=== PATIENT | male | born 1950 | race African-American/Black ===

== ENCOUNTER 2016-11-21 12:09 | Inpatient (IN) ==
[2016-11-21] MEDS ORDERED: FUROSEMIDE 40 MG/4 ML VIAL IV STA (12:28)
--- NOTE | 2016-11-21 12:35 | Emergency Department Note ---
Arrival - Arrival Chief Complaint: Non-Specific Stated Complaint: swollen stomach, chf hx ED Nursing Triage Note: pt has swelling in abd and legs onset about 3 weeks ago. pt has hx of chf. pt has gained about 40 lbs in 3 weeks Mode of Arrival: Ambulatory Time Seen by Provider: 11/21/16 12:23 - History of Present Illness Allergies/Adverse Reactions: Allergies Allergy/AdvReac Type Severity Reaction Status Date / Time MARIO Inhibitors Allergy Unknown/Unable Verified 04/13/16 11:57 to obtain Sulfa (Sulfonamide Allergy RASH Verified 04/13/16 11:57 Antibiotics) Home Medications: Home Medications Medication Instructions Recorded Confirmed Type Carvedilol [Coreg] 6.25 mg PO BID 04/21/15 05/01/16 History Isosorbide Mononitrate [Isosorbide 60 mg PO BID 04/21/15 05/01/16 History Mononitrate ER] Potassium Chloride [Klor-Con M20] 20 meq PO TID 04/21/15 05/01/16 History hydrALAZINE TAB [Apresoline Tab] 100 mg PO TID 04/21/15 05/01/16 History Abiraterone Acetate [Zytiga] 1,000 mg PO BID 04/13/16 05/01/16 History Allopurinol [Zyloprim] 100 mg PO BID #60 tablet 04/17/16 05/01/16 Rx Gabapentin Cap/Tab [Neurontin 100 mg PO TID #90 capsule 04/17/16 05/01/16 Rx Cap/Tab] Furosemide Tab [Lasix Tab] 80 mg PO BID DIURETIC 05/01/16 05/01/16 History HYDROcodone/ACETAMIN 5-325 [[place] 1 tablet PO Q6H PRN #30 tablet 05/04/16 Rx 5-325] Pantoprazole Tab [Protonix Tab] 40 mg PO BID@0700,1900 #60 tablet 05/04/16 Rx Medical,Surgical,& Family Hx - Medical History Cardio: History of: Cardiac Dysrhythmia (afib), CHF, Hypertension, Cardiovascular Problems (cardiomyopathy) Neurology: No history of: Seizures HEENT: No history of: Glaucoma Endocrine: History of: Diabetes Mellitus (IDDM), Dyslipidemia Genitourinary: History of: Prostate Problems (prostate cancer) Hematology: History of: Anemia No history of: Blood Transfusion Reaction Other: History of: Cancer (prostate cancer) - Surgical History HEENT Surgeries: Surgical HX of: Tonsilectomy & Adenoidectomy Abdominal Surgeries: Surgical HX of: Appendectomy, Cholecystectomy Orthopedic Surgeries: Patient denies;: Total Knee Replacement - Family History Family History: Reports;: Family Diabetes (Mother), Family Heart Disease (Sister ), Family Hypertension Denies;: Family Cancer - Social History Smoking Status: Never smoker Frequency of Alcohol Use: None Type of Drug Use: None Exam Vital Signs: Vital Signs Temperature 97.6 F 11/21/16 12:14 Pulse Rate 98 H 11/21/16 12:14 Respiratory Rate 18 11/21/16 12:14 Blood Pressure 135/96 11/21/16 12:14 O2 Sat by Pulse Oximetry 94 L 11/21/16 12:14
--- NOTE | 2016-11-21 12:37 | Emergency Department Note ---
Kapil Love Brooke, am scribing for, and in the presence of, Rikki Bernard MD 12:30 . Joana Love James D, MD, personally performed the services described in this documentation, ascribed by Annmarie Dick in my presence, and it is both accurate and complete . Arrival - Arrival Chief Complaint: Non-Specific Stated Complaint: swollen stomach, chf hx ED Nursing Triage Note: pt has swelling in abd and legs onset about 3 weeks ago. pt has hx of chf. pt has gained about 40 lbs in 3 weeks Mode of Arrival: Ambulatory Limitations: No Limitations Source: Patient, RN Notes Reviewed Time Seen by Provider: 11/21/16 12:23 - History of Present Illness HPI Narrative: Patient is a 66 year old male who presents to the ED with c/o abdominal swelling that started about three weeks ago. Patient has history of CHF and kidney failure. He says he does take fluid pills and have been taking those and his other medications, regularly. He has been voiding frequently. Patient says he also gets short of breath, sometimes, but denies having any vomiting. He says that he has been eating a lot of high sodium foods. There are no other complaints. Patient also has PMHx of afib, HTN, dyslipidemia, IDDM, cardiomyopathy, prostate cancer, and anemia. His Primary Care Provider is Dr. Black. He does not have home oxygen. Onset (ago): week(s) (3) Allergies/Adverse Reactions: Allergies Allergy/AdvReac Type Severity Reaction Status Date / Time MARIO Inhibitors Allergy Unknown/Unable Verified 04/13/16 11:57 to obtain Sulfa (Sulfonamide Allergy RASH Verified 04/13/16 11:57 Antibiotics) Home Medications: Home Medications Medication Instructions Recorded Confirmed Type Carvedilol [Coreg] 6.25 mg PO BID 04/21/15 11/21/16 History Isosorbide Mononitrate [Isosorbide 60 mg PO BID 04/21/15 11/21/16 History Mononitrate ER] Potassium Chloride [Klor-Con M20] 20 meq PO TID 04/21/15 11/21/16 History hydrALAZINE TAB [Apresoline Tab] 100 mg PO TID 04/21/15 11/21/16 History Allopurinol [Zyloprim] 100 mg PO BID #60 tablet 04/17/16 11/21/16 Rx Gabapentin Cap/Tab [Neurontin 100 mg PO TID #90 capsule 04/17/16 11/21/16 Rx Cap/Tab] Furosemide Tab [Lasix Tab] 80 mg PO BID DIURETIC 05/01/16 11/21/16 History Enzalutamide [Xtandi] 160 mg PO DAILY 11/21/16 11/21/16 History Tamsulosin [Flomax] 0.4 mg PO BEDTIME 11/21/16 11/21/16 History Review of System - Review of System 12 point system: reviewed and no additional remarkable complaints except as stated - Review of System Constitutional: Absent: fever Respiratory: Present: other (intermittent shortness of breath). Absent: respiratory distress Gastrointestinal: Present: other (abdominal swelling) Skin: Absent: rash Medical,Surgical,& Family Hx - Medical History Cardio: History of: Cardiac Dysrhythmia (afib), CHF, Hypertension, Cardiovascular Problems (cardiomyopathy) Neurology: No history of: Seizures HEENT: No history of: Glaucoma Endocrine: History of: Diabetes Mellitus (IDDM), Dyslipidemia Genitourinary: History of: Prostate Problems (prostate cancer) Hematology: History of: Anemia No history of: Blood Transfusion Reaction Other: History of: Cancer (prostate cancer) - Surgical History HEENT Surgeries: Surgical HX of: Tonsilectomy & Adenoidectomy Abdominal Surgeries: Surgical HX of: Appendectomy, Cholecystectomy Orthopedic Surgeries: Patient denies;: Total Knee Replacement - Family History Family History: Reports;: Family Diabetes (Mother), Family Heart Disease (Sister ), Family Hypertension Denies;: Family Cancer - Social History Smoking Status: Never smoker Frequency of Alcohol Use: None Type of Drug Use: None Exam Vital Signs: Vital Signs Temperature 97.6 F 11/21/16 14:26 Pulse Rate 98 H 11/21/16 14:26 Respiratory Rate 24 11/21/16 14:26 Blood Pressure 135/96 11/21/16 14:26 O2 Sat by Pulse Oximetry 98 11/21/16 12:30 GENERAL: This is a chronically ill-appearing black male in no apparent distress. VITAL SIGNS: Reviewed HEENT: Head is atraumatic and normocephalic. Pupils are equal round react to light. Extraocular movements are intact. Oropharynx is benign with moist mucous membranes. NECK: Neck is soft and supple without tenderness. There are no masses. There is no lymphadenopathy. LUNGS: Decreased breath sounds at the bases bilaterally. Chest rises symmetrically. There is no chest wall tenderness. CV: Heart is irregularly irregular without murmurs rubs or gallops. JVD is present to the angle of the mandible. ABDOMEN: Abdomen is soft, nontender to palpation. There are no abdominal abnormal masses palpated. There is no organomegaly. Bowel sounds are present and active. Patient has anterior abdominal wall edema. SKIN: Skin is warm and dry. No rash. EXTREMITIES: Patient has full range of motion without tenderness. There is 3+ pitting edema of the lower extremities bilaterally. NEUROLOGIC: Awake alert and oriented 4. Cranial nerves II through XII are intact. Motor is 5 over 5 in all extremities bilaterally. Course - Consultations Consultation #1: Discussed with hospitalist. Patient be admitted to their service Time: 14:34 Results - Labs CBC & BMP: 11/21/16 12:37 11/21/16 12:37 Lab Results: I have reviewed the patients labs Labs: Laboratory Tests 11/21/16 12:37 B-Natriuretic Peptide 170 H - EKG EKG results: interpreted by ERMD - Impressions EKG: Atrial fib with a rate of 82, left axis deviation, low voltage QRS. - Diagnostic Findings Procedure: Chest x-ray: image reviewed by me (Cardiomegaly with right pleural effusion and right-sided atelectasis. Patient has increased pulmonary markings bilaterally.) Disposition Clinical Impression: Congestive heart failure, Dietary noncompliance, Atrial fibrillation, Cardiomyopathy, Prostate cancer metastatic to bone Case discussed with: patient Disposition: Still a Patient Condition: Stable Time of Disposition: 14:33
--- NOTE | 2016-11-21 12:58 | XRay Report ---
Exam: XR chest 2V Date: 11/21/2016 12:37 PM Indication: Dyspnea Comparison: 04/13/2016 Technical: PA lateral Findings: Cardiomegaly is present with bilateral effusions and platelike atelectatic change present. Minimal thickening of the minor fissure. Enlargement of the pulmonary arteries are present bilaterally. No pneumothorax. Mediastinum is otherwise intact. Bony structures reveal mild degenerative changes. Impression: 1. Cardiomegaly and component of mild cardiac decompensation with low volume effusions and atelectatic change present bilaterally. 2. Component of pulmonary arterial hypertension with dilatation of the pulmonary artery suspected PROCEDURE INTERPRETED AT [facility] DEPARTMENT OF RADIOLOGY Final Report Signed by: Dr. Chapito Rawls
[2016-11-21] MEDS ORDERED: FUROSEMIDE 40 MG/4 ML VIAL ONE (13:32)
[2016-11-21 13:34] LABS: Basophils % 0.3 % (0.0-0.8); Eosinophils # 0.1 10*3/uL (0.0-0.87); Eosinophils % 2.9 % (0.00-10.9); Hematocrit 32.2 VOL% (42.0-52.0); Hemoglobin 10.4 GM/DL (14.0-18.0); Immature Granulocytes % 0.3 %; Immature Granulocytes Absolute 0.01 #; Lymphocytes # 0.8 10*3/uL (1.4-4.0); Lymphocytes % 19.9 % (21.2-54.2); Mean Corpuscular HGB Conc 32.3 GM/DL (32-36); Mean Corpuscular Hemoglobin 35 PG (27-34); Mean Corpuscular Volume 108.4 FL (87-102); Mean Platelet Volume 9.4 FL (9.6-12.0); Monocytes # 0.4 10*3/uL (0.11-0.8); Monocytes % 11.5 % (1.7-12.7); Neutrophils # 2.5 10*3/uL (1.4-7.4); Neutrophils % 65.1 % (38.7-73.9); Platelet Count 182 T/CUMM (130-400); Red Blood Count 2.97 MC/CUMM (3.8-5.5); Red Cell Distribution Width 14.6 % (9.3-17.3); White Blood Count 3.8 T/CUMM (4-12)
[2016-11-21 13:50] LABS: Apearance,Urine CLEAR (Clear); Bilirubin,Urine Negative (Negative); Blood, Urine Negative (Negative); Glucose,Urine (UA) Negative (Negative); Hyaline Casts,Urine 1 /LPF (0-3); Ketones,Urine Negative (Negative); Nitrite,Urine Negative (Negative); Protein,Urine >=500 MG/DL; RBC,Urine 1 /HPF (0-4); Urine Color Yellow (Yellow); Urine Specific Gravity 1.011 (1.001-1.035); WBC,Urine 1 /HPF (0-6)
[2016-11-21 13:58] LABS: Calcium 8.8 MG/DL (8.5-10.1)
--- NOTE | 2016-11-21 14:02 | Order Completion Report ---
See report scanned to EMR
--- NOTE | 2016-11-21 15:28 | Hospitalist History & Physical ---
Assessment and Plan (1) Congestive heart failure Status: Acute Assessment and plan: Admit to telemetry. Echo in early 2017 shows EF of 55%. Diurese patient with IV lasix. Strict I&Os. Cardiac diet. Education on proper diet. BNP in am. Current Visit: Yes (2) Diabetes Status: Chronic Assessment and plan: Accuchecks achs. SSI. Hbg A1c in the am. Current Visit: No (3) HTN (hypertension) Status: Chronic Assessment and plan: Restart home meds. Current Visit: No (4) History of prostate cancer Status: Chronic Assessment and plan: Pt. followed by [facility]. Has appt tomorrow get nursing staff to notify office. Current Visit: No (5) Chronic kidney disease, stage II (mild) Status: Chronic Assessment and plan: Pt. bun creatinine 29/1.60. This is near patient's baseline. Daily bmp. avoid nephrotoxic agents. Current Visit: No History of Present Illness Chief complaint: abdominal swelling History of present illness: Mr. Preston is a 66 year old male patient with a history of hypertension, chf, dm, anemia, prostate cancer, and renal insufficiency that presents to the ED today with complaints of abdominal and leg swelling x 3 weeks. Pt. is accompanied by his significant other. Pt. states that he has gained 40 lbs in 3 weeks. He also reports that he has been experiencing worsening shortness of breath on exertion. Pt denies any other symptoms such as chest pain or tightness or trouble breathing at rest. Pt. reports complaince with all of his meds (including lasix) daily. Pt. does report noncomplaince with diet and states he eats very high sodium foods. He attributes this to a lack of knowledge on what to eat. Pt. states he is followed by Dr. Black ( PCP), Dr. Merrill (cardiology), Dr. Johnston (nephrology), and Dr. Marina (oncology ). Remarkable labs obtained in ED reveal a BNP of 179, bun/creatinine of 29/1.6 , h&h of 10.4 and 32.2. CXR report revealed 'cardiomegaly and a component of mild cardiac decompensation with low volume effusions and atelectatic change present bilaterally'. Pt's case has been discussed with ER physician and hospitalist Dr. Yeung. Pt. has been accepted onto our service and will be admitted for further evaluation and treatment. Home meds have been reviewed and reconciled at this time. Home Medications Medication Instructions Recorded Confirmed Type Carvedilol [Coreg] 6.25 mg PO BID 04/21/15 11/21/16 History Isosorbide Mononitrate [Isosorbide 60 mg PO BID 04/21/15 11/21/16 History Mononitrate ER] Potassium Chloride [Klor-Con M20] 20 meq PO TID 04/21/15 11/21/16 History hydrALAZINE TAB [Apresoline Tab] 100 mg PO TID 04/21/15 11/21/16 History Allopurinol [Zyloprim] 100 mg PO BID #60 tablet 04/17/16 11/21/16 Rx Gabapentin Cap/Tab [Neurontin 100 mg PO TID #90 capsule 04/17/16 11/21/16 Rx Cap/Tab] Furosemide Tab [Lasix Tab] 80 mg PO BID DIURETIC 05/01/16 11/21/16 History Enzalutamide [Xtandi] 160 mg PO DAILY 11/21/16 11/21/16 History Tamsulosin [Flomax] 0.4 mg PO BEDTIME 11/21/16 11/21/16 History Allergies Allergy/AdvReac Type Severity Reaction Status Date / Time MARIO Inhibitors Allergy Unknown/Unable Verified 04/13/16 11:57 to obtain Sulfa (Sulfonamide Allergy RASH Verified 04/13/16 11:57 Antibiotics) Medical,Surgical,& Family Hx - Medical History Cardio: History of: Cardiac Dysrhythmia (afib), CHF, Hypertension, Cardiovascular Problems (cardiomyopathy) Neurology: No history of: Seizures HEENT: No history of: Glaucoma Endocrine: History of: Diabetes Mellitus (IDDM), Dyslipidemia Genitourinary: History of: Prostate Problems (prostate cancer) Hematology: History of: Anemia No history of: Blood Transfusion Reaction Other: History of: Cancer (prostate cancer) - Surgical History HEENT Surgeries: Surgical HX of: Tonsilectomy & Adenoidectomy Abdominal Surgeries: Surgical HX of: Appendectomy, Cholecystectomy Orthopedic Surgeries: Patient denies;: Total Knee Replacement - Family History Family History: Reports;: Family Diabetes (Mother), Family Heart Disease (Sister ), Family Hypertension Denies;: Family Cancer - Social History Smoking Status: Never smoker Frequency of Alcohol Use: None Type of Drug Use: None Marital Status: Single Lives With:: Significant Other Functional capacity: independent ambulation 12 point system: reviewed and no additional remarkable complaints except as stated - Constitutional Constitutional: Present: weight gain (40 lbs in 3 weeks). Absent: chills, fever (s) - Cardiovascular Cardiovascular: Present: dyspnea on exertion, edema. Absent: chest pain at rest - Respiratory Respiratory: Present: dyspnea on exertion. Absent: cough Exam - Constitutional Vitals: Period Temp Pulse Resp BP Sys/Steven Pulse Ox Last 24 Hr 97.6 F-97.6 F 81-98 18-24 134-165/81-98 94-100 General appearance: no acute distress, over weight - Head Head exam: Present: normal inspection, normocephalic - Eye Eye exam: Present: EOMI Pupils: Present: ELMER - Respiratory Respiratory exam: Present: clear to auscultation bilaterally. Absent: wheezes - Cardiovascular Cardiovascular exam: Present: regular rate and rhythm - GI/Abdominal GI/Abdominal exam: Present: normal bowel sounds, soft. Absent: tenderness - Extremities Exam Extremities exam: Present: full ROM, edema (BLE) - Neurological Exam Neurological exam: Present: alert, oriented X3 - Psychiatric Psychiatric exam: Present: normal affect, normal mood - Skin Skin exam: Present: normal color, warm, dry Results - Labs CBC & BMP: 11/21/16 12:37 11/21/16 12:37 Lab Results: I have reviewed the past 24 hour labs
[2016-11-21] MEDS ORDERED: DEXTROSE 50% 25 GM/50 ML SYRINGE IV PRN (16:38)
[2016-11-21] MEDS ORDERED: GLUCAGON 1 MG VIAL IM PRN (16:38)
[2016-11-21] MEDS ORDERED: POTASSIUM CHLORIDE 20 MEQ TABLET PO PRN (16:38)
[2016-11-21] MEDS ORDERED: ONDANSETRON 4 MG/2 ML VIAL IV PRN (16:38)
[2016-11-21] MEDS ORDERED: MAGNESIUM SULF RIDER 4 GM in PREMIX 1 EACH IV PRN (16:38)
[2016-11-21] MEDS ORDERED: MAGNESIUM SULF RIDER 2 GM in PREMIX 1 EACH IV PRN (16:38)
[2016-11-21] MEDS ORDERED: ACETAMINOPHEN 325 MG TABLET PO PRN (16:38)
[2016-11-21] MEDS: INSULIN LISPRO 100 UNIT/ML SUBCUT SCH ×2 (16:58→21:18)
[2016-11-21] MEDS: FUROSEMIDE 40 MG/4 ML VIAL IV SCH (16:58)
[2016-11-21] MEDS: CARVEDILOL 6.25 MG TABLET PO SCH (21:17)
[2016-11-21] MEDS: TAMSULOSIN 0.4 MG CAPSULE PO SCH (21:18)
[2016-11-21] MEDS: ISOSORBIDE MONONITRATE 60 MG TABLET PO SCH (21:23)
[2016-11-21] MEDS: GABAPENTIN 100 MG CAPSULE PO SCH (21:23)
[2016-11-21] MEDS: ALLOPURINOL 100 MG TABLET PO SCH (21:24)
[2016-11-22 06:24] LABS: Basophils % 0.3 % (0.0-0.8); Eosinophils # 0.1 10*3/uL (0.0-0.87); Eosinophils % 2.3 % (0.00-10.9); Hematocrit 33.2 VOL% (42.0-52.0); Hemoglobin 10.5 GM/DL (14.0-18.0); Immature Granulocytes % 0.5 %; Immature Granulocytes Absolute 0.02 #; Lymphocytes # 0.6 10*3/uL (1.4-4.0); Lymphocytes % 16.1 % (21.2-54.2); Mean Corpuscular HGB Conc 31.6 GM/DL (32-36); Mean Corpuscular Hemoglobin 35 PG (27-34); Mean Corpuscular Volume 110.3 FL (87-102); Mean Platelet Volume 9.2 FL (9.6-12.0); Monocytes # 0.4 10*3/uL (0.11-0.8); Monocytes % 9.9 % (1.7-12.7); Neutrophils # 2.7 10*3/uL (1.4-7.4); Neutrophils % 70.9 % (38.7-73.9); Platelet Count 174 T/CUMM (130-400); Red Blood Count 3.01 MC/CUMM (3.8-5.5); Red Cell Distribution Width 14.5 % (9.3-17.3); White Blood Count 3.8 T/CUMM (4-12)
[2016-11-22 06:50] LABS: Basophilic Stippling Slight; Macrocytosis 1+; Polychromasia 1+; Target Cells Slight
[2016-11-22 07:03] LABS: Calcium 8.8 MG/DL (8.5-10.1); Magnesium 2.5 MG/DL (1.8-2.4); Osmolality,Calculated 291.8 MOS/KG (273-304); Risk Ratio 2.2; Thyroid Stimulating Hormone 1.38 uIU/ml (0.358-3.74); VLDL CHOLESTEROL 7.8 MG/DL
[2016-11-22] MEDS: ISOSORBIDE MONONITRATE 60 MG TABLET PO SCH ×2 (08:45→20:45)
[2016-11-22] MEDS: INSULIN LISPRO 100 UNIT/ML SUBCUT SCH ×4 (08:45→21:42)
[2016-11-22] MEDS: PANTOPRAZOLE 40 MG TABLET PO SCH (08:45)
[2016-11-22] MEDS: CARVEDILOL 6.25 MG TABLET PO SCH ×2 (08:45→20:45)
[2016-11-22] MEDS: ALLOPURINOL 100 MG TABLET PO SCH ×2 (08:45→20:45)
[2016-11-22] MEDS: GABAPENTIN 100 MG CAPSULE PO SCH ×3 (08:46→20:45)
[2016-11-22] MEDS: FUROSEMIDE 40 MG/4 ML VIAL IV SCH ×2 (08:47→17:50)
[2016-11-22] MEDS: Enzalutamide [Xtandi] 160 MG PO SCH (14:46)
--- NOTE | 2016-11-22 17:03 | Hospitalist Progress Note ---
Assessment and Plan (1) Atrial fibrillation Status: Chronic Current Visit: Yes Qualifiers: Atrial fibrillation type: chronic Qualified Code(s): I48.2 - Chronic atrial fibrillation (2) HTN (hypertension) Status: Chronic Current Visit: Yes Qualifiers: Hypertension type: essential hypertension Qualified Code(s): I10 - Essential (primary) hypertension (3) Cardiomyopathy Status: Chronic Current Visit: Yes (4) Bilateral lower extremity edema Status: Chronic Current Visit: Yes (5) Chronic kidney disease, stage II (mild) Status: Chronic Current Visit: No (6) Congestive heart failure Status: Chronic Assessment and plan: Echo in early 2017 shows EF of 55%. Continue diuresis Likely discharge home tomorrow Current Visit: Yes Qualifiers: Congestive heart failure type: diastolic Congestive heart failure chronicity: acute on chronic Qualified Code(s): I50.33 - Acute on chronic diastolic (congestive) heart failure Hospitalist: Subjective Interval history: Patient seen and examined. No acute events overnight. Case discussed with nursing staff. Labs reviewed. Reports improvement in his breathing and swelling. Exam - Constitutional Vitals: Period Temp Pulse Resp BP Sys/Steven Pulse Ox Last 24 Hr 97.4 F-98.8 F 62-89 18-20 123-190/68-112 94-99 Exam: Constitutional System: No distress. No tremulousness. Head: Normocephalic, atraumatic. Ears, Nose and Throat System: No pain or tenderness. No epistaxis or discharge Eyes System: Pupils equal, round, and reactive. Extraocular muscles intact. Neck: Supple, without adenopathy, No jugular venous distention. No thyromegaly, neck mass, or prior surgery apparent. Respiratory System: Chest clear to auscultation. Cardiovascular System: Heart with regular rate and rhythm. No murmur. GI System: Abdomen soft, nontender. Normo active bowel sounds present. Musculoskeletal System: limbs with chronic bilateral lower extremity pitting pedal edema. Full distal pulses. Normal capillary refill. Neurological System: No discernable sensory deficit. No aphasia Psychiatric System: Conversation is rational Results - Labs CBC & BMP: 11/22/16 06:06 11/22/16 06:06 Lab Results: I have reviewed the past 24 hour labs
[2016-11-22] MEDS: TAMSULOSIN 0.4 MG CAPSULE PO SCH (20:45)
[2016-11-23 05:19] LABS: Basophils % 0.2 % (0.0-0.8); Eosinophils # 0.1 10*3/uL (0.0-0.87); Eosinophils % 2.3 % (0.00-10.9); Hematocrit 32.9 VOL% (42.0-52.0); Hemoglobin 10.5 GM/DL (14.0-18.0); Immature Granulocytes % 0.5 %; Immature Granulocytes Absolute 0.02 #; Lymphocytes # 0.7 10*3/uL (1.4-4.0); Lymphocytes % 15.5 % (21.2-54.2); Mean Corpuscular HGB Conc 31.9 GM/DL (32-36); Mean Corpuscular Hemoglobin 36 PG (27-34); Mean Corpuscular Volume 111.5 FL (87-102); Mean Platelet Volume 9.3 FL (9.6-12.0); Monocytes # 0.4 10*3/uL (0.11-0.8); Monocytes % 9.1 % (1.7-12.7); Neutrophils # 3.1 10*3/uL (1.4-7.4); Neutrophils % 72.4 % (38.7-73.9); Platelet Count 176 T/CUMM (130-400); Red Blood Count 2.95 MC/CUMM (3.8-5.5); Red Cell Distribution Width 14.6 % (9.3-17.3); White Blood Count 4.3 T/CUMM (4-12)
[2016-11-23 06:00] LABS: Calcium 8.9 MG/DL (8.5-10.1); Osmolality,Calculated 290.8 MOS/KG (273-304)
[2016-11-23 08:40] VITALS: BP 142/92
[2016-11-23] MEDS: FUROSEMIDE 40 MG/4 ML VIAL IV SCH (09:34)
[2016-11-23] MEDS: INSULIN LISPRO 100 UNIT/ML SUBCUT SCH ×2 (09:34→12:36)
[2016-11-23] MEDS: ISOSORBIDE MONONITRATE 60 MG TABLET PO SCH (09:35)
[2016-11-23] MEDS: CARVEDILOL 6.25 MG TABLET PO SCH (09:35)
[2016-11-23] MEDS: GABAPENTIN 100 MG CAPSULE PO SCH (09:36)
[2016-11-23] MEDS: PANTOPRAZOLE 40 MG TABLET PO SCH (09:36)
[2016-11-23] MEDS: ALLOPURINOL 100 MG TABLET PO SCH (09:38)
--- NOTE | 2016-11-23 11:46 | Discharge Summary ---
<Cristian Tolentino - Last Filed: 11/23/16 12:01> Hospital Course - Hospital Course Hospital Course: Mr. Preston is a 66 year old male patient with a history of hypertension, chf, dm, anemia, prostate cancer, and renal insufficiency that presented to the ED on 11/21 with complaints of abdominal and leg swelling x 3 weeks. Pt. stated that he gained 40 lbs in 3 weeks. He also reported that he has been experiencing worsening shortness of breath on exertion. Pt denied any other symptoms such as chest pain or tightness or trouble breathing at rest. Pt. reported complaince with all of his meds (including lasix) daily. Pt. does report noncomplaince with diet and states he eats very high sodium foods. He attributes this to a lack of knowledge on what to eat. He is followed by Dr. Black (PCP), Dr. Merrill (cardiology), Dr. Johnston (nephrology), and Dr. Marina (oncology). Remarkable labs obtained in ED reveal a BNP of 179, bun/ creatinine of 29/1.6, h&h of 10.4 and 32.2. CXR report revealed 'cardiomegaly and a component of mild cardiac decompensation with low volume effusions and atelectatic change present bilaterally'. Pt. was admitted to the hospitalist service for further evaluation and treatment. Pt. was treated with lasix and his breathing was noted to have improved during stay. Today, patient has been cleared for discharge. Labs and vital signs are stable. Pt. is to follow up with PCP. Further instructions to follow per Dr. Yeung. I have personally seen and examined this patient today. I agree with the below note as prepared by the advanced practice provider. I agree with the assessment and plan. The patient has responded well to Lasix therapy. He has lost approximately 7 kg during this hospital stay. His shortness of breath has improved as well as his swelling. He is has reached maximum benefit from this inpatient hospitalization and is being discharged home today. Home medications were reviewed and reconciled. No major changes were made. He is instructed to follow-up with Dr. Merrill in 1-2 weeks. Diagnosis - Discharge Diagnosis (1) Congestive heart failure Status: Chronic (2) Diabetes Status: Chronic (3) HTN (hypertension) Status: Chronic (4) History of prostate cancer Status: Chronic (5) Chronic kidney disease, stage II (mild) Status: Chronic Specialty Discharge - Follow Up or Referrals Follow up with: Rachel Merrill MD [Physician] - 12/06/16 2:00 pm (1-2 wks ) Discharge Plan - Discharge Data Disposition: Disch To Home/Self Care - Discharge Medications Continue Isosorbide Mononitrate [Isosorbide Mononitrate ER] 60 mg PO BID hydrALAZINE TAB [Apresoline Tab] 100 mg PO TID Potassium Chloride [Klor-Con M20] 20 meq PO TID Carvedilol [Coreg] 6.25 mg PO BID Gabapentin Cap/Tab [Neurontin Cap/Tab] 100 mg PO TID #90 capsule Furosemide Tab [Lasix Tab] 80 mg PO BID DIURETIC Tamsulosin [Flomax] 0.4 mg PO BEDTIME Enzalutamide [Xtandi] 160 mg PO DAILY Allopurinol [Zyloprim] 100 mg PO BID #60 tablet - Follow Up or Referral Follow Up: Rachel Merrill MD [Physician] - 12/06/16 2:00 pm (1-2 wks ) - Forms/Instructions Instructions: Heart Failure (DC), Heart Healthy Diet (DC) Exam - Constitutional Vitals: Period Temp Pulse Resp BP Sys/Steven Pulse Ox Last 24 Hr 97.5 F-98.8 F 78-90 17-20 125-155/63-92 90-98 Discharge Results Labs on day of discharge: Labs from last 24 hours 11/23/16 11/23/16 11/23/16 08:14 05:02 05:02 WBC 4.3 RBC 2.95 L Hgb 10.5 L Hct 32.9 L MCV 111.5 H MCH 36 H MCHC 31.9 L RDW 14.6 Plt Count 176 MPV 9.3 L Neut % (Auto) 72.4 Lymph % (Auto) 15.5 L [place] % (Auto) 9.1 Eos % (Auto) 2.3 Baso % (Auto) 0.2 Neut # (Auto) 3.1 Lymph # (Auto) 0.7 L [place] # (Auto) 0.4 Eos # (Auto) 0.1 Baso # (Auto) 0.0 Immature Gran % 0.5 Nucleated RBC % 0.0 Immature Gran # 0.02 Nucleated RBCs # 0.00 Immature Plt Fraction 0.0 Sodium 144 Potassium 4.0 Chloride 107 Carbon Dioxide 34 H Anion Gap 7.0 BUN 27 H Creatinine 1.50 H GFR Calculation 78 BUN/Creatinine Ratio 18.00 Glucose 103 POC Glucose 134 H Calculated Osmolality 290.8 Calcium 8.9 11/22/16 11/22/16 11/22/16 20:42 16:14 11:41 WBC RBC Hgb Hct MCV MCH MCHC RDW Plt Count MPV Neut % (Auto) Lymph % (Auto) [place] % (Auto) Eos % (Auto) Baso % (Auto) Neut # (Auto) Lymph # (Auto) [place] # (Auto) Eos # (Auto) Baso # (Auto) Immature Gran % Nucleated RBC % Immature Gran # Nucleated RBCs # Immature Plt Fraction Sodium Potassium Chloride Carbon Dioxide Anion Gap BUN Creatinine GFR Calculation BUN/Creatinine Ratio Glucose POC Glucose 114 H 115 H 117 H Calculated Osmolality Calcium DS: Provider Date of admission: 11/21/16 14:45 Primary care physician: Jaime Black Attending physician on admission: Haritha Yeung MD Consults: 11/21/16 16:38 Consult to Dietitian [CONS] Routine Reason for Dietitian: Dietary Consult Consult Comment: low sodium diet Discharging clinician: Cristian Tolentino NP <Haritha Yeung - Last Filed: 11/23/16 14:12> Hospital Course - Time spent with patient Time with patient DS: Greater than 30 minutes (Total discharge time for this patient, including [id number] time, clinical documentation, medication reconciliation, and discharge planning was 38 minutes.) Diagnosis - Discharge Diagnosis (1) Atrial fibrillation Status: Chronic (2) HTN (hypertension) Status: Chronic (3) Cardiomyopathy Status: Chronic (4) Bilateral lower extremity edema Status: Chronic (5) Chronic kidney disease, stage II (mild) Status: Chronic (6) Congestive heart failure Status: Chronic Discharge Plan - Discharge Data Condition at Discharge: Stable Discharge Diet: advance to your usual diet Activity: resume usual activities as tolerated, as per physical therapy Contact your physician if you experience:: fever over 101, Shortness of breath, pain uncontrolled by pain medications DS: Provider Expected date of discharge: 11/23/16
[2016-11-23] MEDS: Enzalutamide [Xtandi] 160 MG PO SCH (12:37)
[2016-11-23] MEDS ORDERED: FUROSEMIDE 80 MG TABLET PO SCH (16:00)
== END 2016-11-23 12:32 | disposition home or self-care (01) | DRG 291 ==
LOC: N.ED 12:09 → N.EDINP 14:45 → N.TELEN 16:30
PROVIDERS: ADMIT Family Medicine; ATTEND Family Medicine

== ENCOUNTER 2016-12-06 15:08 | Inpatient (IN) ==
[2016-12-06] MEDS ORDERED: ACETAMINOPHEN 325 MG TABLET PO PRN (16:09)
[2016-12-06] MEDS ORDERED: MORPHINE 2 MG/1 ML SYRINGE IV PRN (16:09)
[2016-12-06] MEDS ORDERED: ONDANSETRON 4 MG/2 ML VIAL IV PRN (16:09)
[2016-12-06] MEDS ORDERED: ZALEPLON 5 MG CAPSULE PO PRN (16:09)
[2016-12-06] MEDS ORDERED: MAGNESIUM SULF RIDER 4 GM in PREMIX 1 EACH IV PRN (16:14)
[2016-12-06] MEDS ORDERED: MAGNESIUM SULF RIDER 2 GM in PREMIX 1 EACH IV PRN (16:14)
[2016-12-06 17:29] LABS: Basophils % 0.2 % (0.0-0.8); Eosinophils # 0.1 10*3/uL (0.0-0.87); Eosinophils % 1.5 % (0.00-10.9); Immature Granulocytes % 0.4 %; Immature Granulocytes Absolute 0.02 #; Lymphocytes # 0.7 10*3/uL (1.4-4.0); Lymphocytes % 13.8 % (21.2-54.2); Mean Corpuscular HGB Conc 31.4 GM/DL (32-36); Mean Corpuscular Hemoglobin 35 PG (27-34); Mean Corpuscular Volume 112.2 FL (87-102); Mean Platelet Volume 9.7 FL (9.6-12.0); Monocytes # 0.4 10*3/uL (0.11-0.8); Monocytes % 7.8 % (1.7-12.7); Neutrophils % 76.3 % (38.7-73.9); Platelet Count 170 T/CUMM (130-400); Red Blood Count 3.12 MC/CUMM (3.8-5.5); Red Cell Distribution Width 14.6 % (9.3-17.3); White Blood Count 5.3 T/CUMM (4-12)
[2016-12-06 17:54] LABS: Albumin 3.3 G/DL (3.4-5.0); Bilirubin,Total 1.7 MG/DL (0.2-1.0); Osmolality,Calculated 288.8 MOS/KG (273-304); Potassium 4.3 MMOL/L (3.5-5.1); Thyroid Stimulating Hormone 1.36 uIU/ml (0.358-3.74)
[2016-12-06 17:57] LABS: Troponin I Only 0.065 NG/ML (0.00-0.045)
[2016-12-06 18:31] LABS: Apearance,Urine CLEAR (Clear); Bilirubin,Urine Negative (Negative); Blood, Urine Small mg/dL (Negative); Glucose,Urine (UA) Negative (Negative); Ketones,Urine Negative (Negative); Mucus,Urine Occasional /LPF (Occasional); Nitrite,Urine Negative (Negative); Protein,Urine >=500 MG/DL; RBC,Urine 3 /HPF (0-4); Squamous Epithelial Cell,Urine Occasional /HPF (0-10); Urine Color Yellow (Yellow); WBC,Urine 1 /HPF (0-6)
[2016-12-06] MEDS: POTASSIUM CHLORIDE 20 MEQ TABLET PO SCH (20:57)
[2016-12-06] MEDS: ALLOPURINOL 100 MG TABLET PO SCH (20:57)
[2016-12-06] MEDS: CARVEDILOL 12.5 MG TABLET PO SCH (20:58)
[2016-12-06] MEDS: GABAPENTIN 100 MG CAPSULE PO SCH (20:58)
[2016-12-07 01:03] LABS: Basophils % 0.2 % (0.0-0.8); Eosinophils # 0.1 10*3/uL (0.0-0.87); Eosinophils % 1.4 % (0.00-10.9); Hematocrit 33.3 VOL% (42.0-52.0); Hemoglobin 10.7 GM/DL (14.0-18.0); Immature Granulocytes % 0.6 %; Immature Granulocytes Absolute 0.03 #; Lymphocytes # 0.7 10*3/uL (1.4-4.0); Mean Corpuscular HGB Conc 32.1 GM/DL (32-36); Mean Corpuscular Hemoglobin 36 PG (27-34); Mean Corpuscular Volume 112.5 FL (87-102); Mean Platelet Volume 9.5 FL (9.6-12.0); Monocytes # 0.4 10*3/uL (0.11-0.8); Monocytes % 8.4 % (1.7-12.7); NRBC # 0.02 10*3/uL; Neutrophils # 3.8 10*3/uL (1.4-7.4); Neutrophils % 76.4 % (38.7-73.9); Platelet Count 180 T/CUMM (130-400); Red Blood Count 2.96 MC/CUMM (3.8-5.5); Red Cell Distribution Width 14.6 % (9.3-17.3)
[2016-12-07 01:35] LABS: Albumin 3.3 G/DL (3.4-5.0); Bilirubin,Total 1.4 MG/DL (0.2-1.0); Calcium 8.8 MG/DL (8.5-10.1); Osmolality,Calculated 297.4 MOS/KG (273-304); Potassium 4.4 MMOL/L (3.5-5.1); Risk Ratio 3.02; Total Protein 6.9 G/DL (6.4-8.3)
[2016-12-07 01:40] LABS: Troponin I Only 0.057 NG/ML (0.00-0.045)
[2016-12-07 03:45] LABS: ABG HCO3 34.9 MMOL/L (20-26); ABG Oxygen Saturation 77.8 % (95-100); ABG PCO2 67.8 MM HG (35-48); ABG PH 7.329 (7.35-7.45); ABG PO2 41.8 MM HG (80-95); ABG TCO2 36.9 MMOL/L (23-27)
[2016-12-07] MEDS ORDERED: FUROSEMIDE 80 MG TABLET PO SCH (08:00)
[2016-12-07 08:38] LABS: Troponin I Only 0.053 NG/ML (0.00-0.045)
[2016-12-07] MEDS: ALLOPURINOL 100 MG TABLET PO SCH ×2 (08:58→21:32)
[2016-12-07] MEDS: GABAPENTIN 100 MG CAPSULE PO SCH ×3 (08:58→21:32)
[2016-12-07] MEDS: DOCUSATE SODIUM 100 MG CAPSULE PO PRN (08:58)
[2016-12-07] MEDS: POTASSIUM CHLORIDE 20 MEQ TABLET PO SCH ×3 (08:58→21:31)
[2016-12-07] MEDS: ISOSORBIDE MONONITRATE 60 MG TABLET PO SCH (08:58)
[2016-12-07] MEDS: CARVEDILOL 12.5 MG TABLET PO SCH ×2 (08:58→21:32)
[2016-12-07] MEDS: PANTOPRAZOLE 40 MG TABLET PO SCH (08:58)
[2016-12-07] MEDS: TAMSULOSIN 0.4 MG CAPSULE PO SCH (08:58)
[2016-12-07] MEDS: FUROSEMIDE 40 MG/4 ML VIAL IV SCH ×2 (08:59→15:05)
[2016-12-07 09:03] LABS: ABG Base Excess 3.3 MMOL/L (-2.5-2.5); ABG HCO3 27.3 MMOL/L (20-26); ABG Oxygen Saturation 97.5 % (95-100); ABG TCO2 31.8 MMOL/L (23-27); Allen Test Positive
[2016-12-07 09:08] LABS: ABG PH 7.205 (7.35-7.45)
[2016-12-07] MEDS ORDERED: ALBUTEROL/IPRATROPIUM 3 ML NEB RESP TX PRN (10:04)
[2016-12-07 10:13] LABS: ABG Base Excess 4.7 MMOL/L (-2.5-2.5); ABG HCO3 28.4 MMOL/L (20-26); ABG Oxygen Saturation 85.4 % (95-100); ABG PH 7.252 (7.35-7.45); ABG PO2 58.3 MM HG (80-95); ABG TCO2 31.8 MMOL/L (23-27); Allen Test Positive
[2016-12-07 10:17] LABS: ABG PCO2 78.6 MM HG (35-48)
[2016-12-07 12:52] LABS: ABG Base Excess 5.1 MMOL/L (-2.5-2.5); ABG HCO3 28.8 MMOL/L (20-26); ABG Oxygen Saturation 86.5 % (95-100); ABG PH 7.272 (7.35-7.45); ABG TCO2 31.6 MMOL/L (23-27)
[2016-12-07 12:53] LABS: ABG PCO2 74.7 MM HG (35-48)
[2016-12-07] MEDS: ALBUTEROL/IPRATROPIUM 3 ML NEB RESP TX SCH ×2 (13:00→20:09)
[2016-12-08] MEDS: ALBUTEROL/IPRATROPIUM 3 ML NEB RESP TX SCH ×4 (01:06→20:17)
[2016-12-08 05:36] LABS: Basophils % 0.2 % (0.0-0.8); Eosinophils # 0.1 10*3/uL (0.0-0.87); Eosinophils % 1.1 % (0.00-10.9); Hematocrit 34.8 VOL% (42.0-52.0); Hemoglobin 10.6 GM/DL (14.0-18.0); Immature Granulocytes % 0.7 %; Immature Granulocytes Absolute 0.03 #; Lymphocytes # 0.5 10*3/uL (1.4-4.0); Lymphocytes % 11.2 % (21.2-54.2); Mean Corpuscular HGB Conc 30.5 GM/DL (32-36); Mean Corpuscular Hemoglobin 35 PG (27-34); Mean Corpuscular Volume 114.1 FL (87-102); Mean Platelet Volume 9.9 FL (9.6-12.0); Monocytes # 0.3 10*3/uL (0.11-0.8); Monocytes % 7.6 % (1.7-12.7); NRBC # 0.03 10*3/uL; Neutrophils # 3.5 10*3/uL (1.4-7.4); Neutrophils % 79.2 % (38.7-73.9); Platelet Count 165 T/CUMM (130-400); Red Blood Count 3.05 MC/CUMM (3.8-5.5); Red Cell Distribution Width 14.3 % (9.3-17.3); White Blood Count 4.4 T/CUMM (4-12)
[2016-12-08 06:09] LABS: Calcium 9.1 MG/DL (8.5-10.1); Magnesium 2.3 MG/DL (1.8-2.4); Osmolality,Calculated 297.4 MOS/KG (273-304); Potassium 3.9 MMOL/L (3.5-5.1)
[2016-12-08 06:10] LABS: Calcium 9.3 MG/DL (8.5-10.1); Osmolality,Calculated 297.4 MOS/KG (273-304); Potassium 3.9 MMOL/L (3.5-5.1)
[2016-12-08 06:13] LABS: Albumin 3.1 G/DL (3.4-5.0); Bilirubin,Total 1.5 MG/DL (0.2-1.0); Osmolality,Calculated 297.4 MOS/KG (273-304); Potassium 3.9 MMOL/L (3.5-5.1); Total Protein 6.8 G/DL (6.4-8.3)
[2016-12-08 07:46] LABS: Hypochromasia 2+; Macrocytosis 1+; Polychromasia Slight
[2016-12-08 07:47] LABS: Platelet Estimate Adequate
[2016-12-08 08:41] LABS: ABG Base Excess 6.1 MMOL/L (-2.5-2.5); ABG HCO3 29.6 MMOL/L (20-26); ABG Oxygen Saturation 78.2 % (95-100); ABG PH 7.306 (7.35-7.45); ABG PO2 48.1 MM HG (80-95); ABG TCO2 31.8 MMOL/L (23-27); Allen Test Positive
[2016-12-08] MEDS: PANTOPRAZOLE 40 MG TABLET PO SCH (09:05)
[2016-12-08] MEDS: POTASSIUM CHLORIDE 20 MEQ TABLET PO SCH ×2 (09:05→15:38)
[2016-12-08] MEDS: GABAPENTIN 100 MG CAPSULE PO SCH ×2 (09:05→15:39)
[2016-12-08] MEDS: CARVEDILOL 12.5 MG TABLET PO SCH (09:05)
[2016-12-08] MEDS: TAMSULOSIN 0.4 MG CAPSULE PO SCH (09:05)
[2016-12-08] MEDS: ISOSORBIDE MONONITRATE 60 MG TABLET PO SCH (09:05)
[2016-12-08] MEDS: ALLOPURINOL 100 MG TABLET PO SCH (09:05)
[2016-12-08] MEDS: FUROSEMIDE 40 MG/4 ML VIAL IV SCH ×2 (09:16→15:38)
[2016-12-08] MEDS ORDERED: CARVEDILOL 12.5 MG TABLET PO ONE (12:16)
[2016-12-08] MEDS: ENOXAPARIN 40 MG/0.4 ML SYRINGE SUBCUT SCH (15:38)
[2016-12-08] MEDS: ASPIRIN EC 81 MG TABLET PO SCH (15:39)
[2016-12-08] MEDS ORDERED: ALBUTEROL 2.5 MG/3 ML NEB RESP TX ONE (20:17)
[2016-12-08] MEDS ORDERED: FUROSEMIDE 40 MG/4 ML VIAL IV ONE (20:18)
[2016-12-08 21:04] LABS: Calcium 8.9 MG/DL (8.5-10.1); Osmolality,Calculated 300.3 MOS/KG (273-304); Potassium 3.8 MMOL/L (3.5-5.1)
[2016-12-08] MEDS: methylPREDNISolone SOD SUC 40 MG/1 ML VIAL IV SCH (22:07)
[2016-12-08 22:32] LABS: ABG Base Excess 5.7 MMOL/L (-2.5-2.5); ABG HCO3 29.3 MMOL/L (20-26); ABG Oxygen Saturation 82.7 % (95-100); ABG PCO2 67.2 MM HG (35-48); ABG PH 7.314 (7.35-7.45); ABG PO2 52.4 MM HG (80-95); Allen Test Positive; Pt O2 Delivery Device BIPAP
[2016-12-09] MEDS: GABAPENTIN 100 MG CAPSULE PO SCH ×4 (00:08→21:49)
[2016-12-09] MEDS: CARVEDILOL 25 MG TABLET PO SCH ×4 (00:08→21:49)
[2016-12-09] MEDS: POTASSIUM CHLORIDE 20 MEQ TABLET PO SCH ×5 (00:08→21:49)
[2016-12-09] MEDS: ALLOPURINOL 100 MG TABLET PO SCH ×4 (00:09→21:49)
[2016-12-09] MEDS: ALBUTEROL/IPRATROPIUM 3 ML NEB RESP TX SCH ×4 (01:13→21:03)
[2016-12-09 03:40] LABS: ABG Base Excess 7.4 MMOL/L (-2.5-2.5); ABG HCO3 35.3 MMOL/L (20-26); ABG Oxygen Saturation 92.6 % (95-100); ABG PCO2 66.9 MM HG (35-48); ABG PO2 62.9 MM HG (80-95); ABG TCO2 37.3 MMOL/L (23-27); Allen Test Positive
[2016-12-09 04:15] LABS: Basophils % 0.3 % (0.0-0.8); Hematocrit 36.4 VOL% (42.0-52.0); Hemoglobin 11.3 GM/DL (14.0-18.0); Immature Granulocytes % 0.8 %; Immature Granulocytes Absolute 0.03 #; Lymphocytes # 0.3 10*3/uL (1.4-4.0); Lymphocytes % 7.9 % (21.2-54.2); Mean Corpuscular Hemoglobin 35 PG (27-34); Mean Corpuscular Volume 112.7 FL (87-102); Monocytes # 0.1 10*3/uL (0.11-0.8); NRBC # 0.04 10*3/uL; Neutrophils # 3.5 10*3/uL (1.4-7.4); Platelet Count 170 T/CUMM (130-400); Red Blood Count 3.23 MC/CUMM (3.8-5.5); Red Cell Distribution Width 14.3 % (9.3-17.3); White Blood Count 3.9 T/CUMM (4-12)
[2016-12-09 04:35] LABS: Calcium 9.2 MG/DL (8.5-10.1); Magnesium 2.4 MG/DL (1.8-2.4); Osmolality,Calculated 301.3 MOS/KG (273-304)
[2016-12-09 05:47] LABS: Giant Platelets Few; Hypochromasia 1+; Macrocytosis Slight; Ovalocytes Slight; Platelet Estimate Normal
[2016-12-09] MEDS: methylPREDNISolone SOD SUC 40 MG/1 ML VIAL IV SCH ×3 (06:23→21:48)
[2016-12-09] MEDS: FUROSEMIDE 40 MG/4 ML VIAL IV SCH ×4 (09:46→21:48)
[2016-12-09] MEDS: ASPIRIN EC 81 MG TABLET PO SCH (09:47)
[2016-12-09] MEDS: ISOSORBIDE MONONITRATE 60 MG TABLET PO SCH (09:47)
[2016-12-09] MEDS: TAMSULOSIN 0.4 MG CAPSULE PO SCH (09:47)
[2016-12-09] MEDS: ENOXAPARIN 40 MG/0.4 ML SYRINGE SUBCUT SCH (11:58)
[2016-12-09] MEDS: amLODIPine 5 MG TABLET PO SCH (14:30)
[2016-12-09] MEDS: PANTOPRAZOLE 40 MG TABLET PO SCH (14:30)
[2016-12-10] MEDS: ALBUTEROL/IPRATROPIUM 3 ML NEB RESP TX SCH ×4 (01:48→19:11)
[2016-12-10 04:52] LABS: Hematocrit 37.6 VOL% (42.0-52.0); Hemoglobin 11.9 GM/DL (14.0-18.0); Immature Granulocytes % 0.4 %; Immature Granulocytes Absolute 0.02 #; Lymphocytes # 0.3 10*3/uL (1.4-4.0); Lymphocytes % 6.7 % (21.2-54.2); Mean Corpuscular HGB Conc 31.6 GM/DL (32-36); Mean Corpuscular Hemoglobin 35 PG (27-34); Mean Corpuscular Volume 110.9 FL (87-102); Mean Platelet Volume 10.4 FL (9.6-12.0); Monocytes # 0.1 10*3/uL (0.11-0.8); NRBC # 0.04 10*3/uL; Neutrophils # 4.2 10*3/uL (1.4-7.4); Neutrophils % 89.9 % (38.7-73.9); Platelet Count 191 T/CUMM (130-400); Red Blood Count 3.39 MC/CUMM (3.8-5.5); Red Cell Distribution Width 14.4 % (9.3-17.3); White Blood Count 4.6 T/CUMM (4-12)
[2016-12-10 05:18] LABS: Calcium 9.1 MG/DL (8.5-10.1); Calcium 9.5 MG/DL (8.5-10.1); Magnesium 2.7 MG/DL (1.8-2.4); Osmolality,Calculated 304.1 MOS/KG (273-304); Potassium 3.9 MMOL/L (3.5-5.1)
[2016-12-10] MEDS: methylPREDNISolone SOD SUC 40 MG/1 ML VIAL IV SCH ×3 (06:00→21:26)
[2016-12-10 06:02] LABS: ABG Base Excess 7.2 MMOL/L (-2.5-2.5); ABG HCO3 30.9 MMOL/L (20-26); ABG Oxygen Saturation 93.7 % (95-100); ABG PCO2 58.8 MM HG (35-48); ABG PH 7.381 (7.35-7.45); ABG PO2 72.2 MM HG (80-95); ABG TCO2 29.9 MMOL/L (23-27); Allen Test Positive
[2016-12-10 06:05] LABS: Giant Platelets Few; Hypochromasia 1+; Macrocytosis Slight; Ovalocytes Slight; Platelet Estimate Adequate
[2016-12-10] MEDS: ASPIRIN EC 81 MG TABLET PO SCH (08:40)
[2016-12-10] MEDS: POTASSIUM CHLORIDE 20 MEQ TABLET PO SCH ×3 (08:41→21:25)
[2016-12-10] MEDS: PANTOPRAZOLE 40 MG TABLET PO SCH (08:41)
[2016-12-10] MEDS: ALLOPURINOL 100 MG TABLET PO SCH ×2 (08:41→21:25)
[2016-12-10] MEDS: amLODIPine 5 MG TABLET PO SCH (08:42)
[2016-12-10] MEDS: GABAPENTIN 100 MG CAPSULE PO SCH ×3 (08:42→21:25)
[2016-12-10] MEDS: ISOSORBIDE MONONITRATE 60 MG TABLET PO SCH (08:42)
[2016-12-10] MEDS: TAMSULOSIN 0.4 MG CAPSULE PO SCH (08:42)
[2016-12-10] MEDS: CARVEDILOL 25 MG TABLET PO SCH ×2 (08:43→21:25)
[2016-12-10] MEDS: FUROSEMIDE 40 MG/4 ML VIAL IV SCH ×3 (08:44→21:25)
[2016-12-10] MEDS: amLODIPine 10 MG TABLET PO SCH (14:13)
[2016-12-10] MEDS: ENOXAPARIN 40 MG/0.4 ML SYRINGE SUBCUT SCH (14:14)
[2016-12-11] MEDS: ALBUTEROL/IPRATROPIUM 3 ML NEB RESP TX SCH ×4 (00:28→20:04)
[2016-12-11 02:44] LABS: ABG HCO3 30.5 MMOL/L (20-26); ABG Oxygen Saturation 82.4 % (95-100); ABG PH 7.317 (7.35-7.45); ABG PO2 53.8 MM HG (80-95); ABG TCO2 32.5 MMOL/L (23-27); Allen Test Positive
[2016-12-11 02:47] LABS: ABG PCO2 69.6 MM HG (35-48)
[2016-12-11] MEDS: methylPREDNISolone SOD SUC 40 MG/1 ML VIAL IV SCH ×3 (06:26→22:00)
[2016-12-11 06:44] LABS: Magnesium 2.8 MG/DL (1.8-2.4); Osmolality,Calculated 303.4 MOS/KG (273-304); Potassium 3.8 MMOL/L (3.5-5.1)
[2016-12-11 07:29] LABS: Hypochromasia 2+; Macrocytosis 1+
[2016-12-11 07:30] LABS: Target Cells Slight
[2016-12-11 08:02] LABS: Eosinophils # 0.1 10*3/uL (0.0-0.87); Eosinophils % 0.8 % (0.00-10.9); Hemoglobin 11.7 GM/DL (14.0-18.0); Immature Granulocytes Absolute 0.06 #; Lymphocytes # 0.4 10*3/uL (1.4-4.0); Lymphocytes % 6.1 % (21.2-54.2); Mean Corpuscular HGB Conc 30.8 GM/DL (32-36); Mean Corpuscular Hemoglobin 35 PG (27-34); Mean Corpuscular Volume 113.8 FL (87-102); Mean Platelet Volume 10.8 FL (9.6-12.0); Monocytes # 0.3 10*3/uL (0.11-0.8); Monocytes % 4.9 % (1.7-12.7); NRBC # 0.03 10*3/uL; Neutrophils # 5.3 10*3/uL (1.4-7.4); Neutrophils % 87.2 % (38.7-73.9); Platelet Count 125 T/CUMM (130-400); Red Blood Count 3.34 MC/CUMM (3.8-5.5); Red Cell Distribution Width 14.3 % (9.3-17.3); White Blood Count 6.1 T/CUMM (4-12)
[2016-12-11] MEDS: TAMSULOSIN 0.4 MG CAPSULE PO SCH (09:55)
[2016-12-11] MEDS: PANTOPRAZOLE 40 MG TABLET PO SCH (09:55)
[2016-12-11] MEDS: DOCUSATE SODIUM 100 MG CAPSULE PO PRN (09:55)
[2016-12-11] MEDS: CARVEDILOL 25 MG TABLET PO SCH ×2 (09:55→21:59)
[2016-12-11] MEDS: GABAPENTIN 100 MG CAPSULE PO SCH ×3 (09:55→22:00)
[2016-12-11] MEDS: ASPIRIN EC 81 MG TABLET PO SCH (09:56)
[2016-12-11] MEDS: ISOSORBIDE MONONITRATE 60 MG TABLET PO SCH (09:56)
[2016-12-11] MEDS: ALLOPURINOL 100 MG TABLET PO SCH ×2 (09:56→21:59)
[2016-12-11] MEDS: amLODIPine 10 MG TABLET PO SCH (09:56)
[2016-12-11] MEDS: FUROSEMIDE 40 MG/4 ML VIAL IV SCH ×3 (09:56→21:59)
[2016-12-11] MEDS: POTASSIUM CHLORIDE 20 MEQ TABLET PO SCH ×3 (09:56→21:59)
[2016-12-11] MEDS: ENOXAPARIN 40 MG/0.4 ML SYRINGE SUBCUT SCH (12:34)
[2016-12-12] MEDS: ALBUTEROL/IPRATROPIUM 3 ML NEB RESP TX SCH ×4 (02:15→20:22)
[2016-12-12 05:54] LABS: Hematocrit 37.7 VOL% (42.0-52.0); Hemoglobin 11.6 GM/DL (14.0-18.0); Immature Granulocytes % 0.6 %; Immature Granulocytes Absolute 0.04 #; Lymphocytes # 0.4 10*3/uL (1.4-4.0); Mean Corpuscular HGB Conc 30.8 GM/DL (32-36); Mean Corpuscular Hemoglobin 35 PG (27-34); Mean Corpuscular Volume 113.2 FL (87-102); Mean Platelet Volume 9.7 FL (9.6-12.0); Monocytes # 0.2 10*3/uL (0.11-0.8); Monocytes % 3.7 % (1.7-12.7); NRBC # 0.04 10*3/uL; Neutrophils # 5.5 10*3/uL (1.4-7.4); Neutrophils % 88.7 % (38.7-73.9); Platelet Count 186 T/CUMM (130-400); Red Blood Count 3.33 MC/CUMM (3.8-5.5); Red Cell Distribution Width 14.1 % (9.3-17.3); White Blood Count 6.2 T/CUMM (4-12)
[2016-12-12] MEDS: methylPREDNISolone SOD SUC 40 MG/1 ML VIAL IV SCH ×3 (06:12→22:01)
[2016-12-12 06:18] LABS: Hypochromasia 1+
[2016-12-12 06:19] LABS: Macrocytosis Slight; Ovalocytes Slight; Platelet Estimate Normal
[2016-12-12 06:27] LABS: Calcium 9.4 MG/DL (8.5-10.1); Magnesium 2.6 MG/DL (1.8-2.4); Osmolality,Calculated 309.9 MOS/KG (273-304); Potassium 3.5 MMOL/L (3.5-5.1)
[2016-12-12] MEDS ORDERED: BISACODYL 5 MG TABLET PO ONE (07:17)
[2016-12-12 09:19] LABS: Total Protein 6.5 G/DL (6.4-8.3)
[2016-12-12] MEDS: TAMSULOSIN 0.4 MG CAPSULE PO SCH (09:20)
[2016-12-12] MEDS: amLODIPine 10 MG TABLET PO SCH (09:20)
[2016-12-12] MEDS: ISOSORBIDE MONONITRATE 60 MG TABLET PO SCH (09:20)
[2016-12-12] MEDS: PANTOPRAZOLE 40 MG TABLET PO SCH (09:20)
[2016-12-12] MEDS: GABAPENTIN 100 MG CAPSULE PO SCH (09:20)
[2016-12-12] MEDS: POTASSIUM CHLORIDE 20 MEQ TABLET PO SCH ×3 (09:20→22:16)
[2016-12-12] MEDS: CARVEDILOL 25 MG TABLET PO SCH ×2 (09:21→22:16)
[2016-12-12] MEDS: FUROSEMIDE 40 MG/4 ML VIAL IV SCH ×3 (09:21→22:01)
[2016-12-12] MEDS: ALLOPURINOL 100 MG TABLET PO SCH ×2 (09:21→22:16)
[2016-12-12] MEDS: ASPIRIN EC 81 MG TABLET PO SCH (09:21)
[2016-12-12 10:50] LABS: ABG Base Excess 5.8 MMOL/L (-2.5-2.5); ABG HCO3 29.6 MMOL/L (20-26); ABG PH 7.268 (7.35-7.45); ABG TCO2 32.5 MMOL/L (23-27)
[2016-12-12 10:56] LABS: ABG PCO2 78.4 MM HG (35-48)
[2016-12-12 11:15] LABS: Total Protein (Chem) 6.5 G/DL (6.4-8.3)
[2016-12-12 11:16] LABS: Albumin (SPE) 3.7 G/DL (3.2-5.3); Albumin (SPE) Rel % 56.9 %; Alpha 1 (SPE) 0.2 G/DL (0.1-0.4); Alpha 1 (SPE) Rel % 3.1 %; Alpha 2 (SPE) 0.7 G/DL (0.4-1.0); Beta (SPE) 0.6 G/DL (0.5-1.1); Beta (SPE) Rel % 9.9 %; Gamma (SPE) 1.3 G/DL (0.7-1.7)
[2016-12-12 11:17] LABS: Gamma (SPE) Rel % 20.1 %
[2016-12-12] MEDS ORDERED: GABAPENTIN 100 MG CAPSULE PO PRN (12:45)
[2016-12-12] MEDS: ENOXAPARIN 40 MG/0.4 ML SYRINGE SUBCUT SCH (13:29)
[2016-12-12 22:54] LABS: ABG Base Excess 7.8 MMOL/L (-2.5-2.5); ABG HCO3 31.5 MMOL/L (20-26); ABG Oxygen Saturation 93.9 % (95-100); ABG PH 7.316 (7.35-7.45); ABG PO2 72.3 MM HG (80-95); ABG TCO2 33.3 MMOL/L (23-27); Allen Test Positive
[2016-12-13] MEDS: ALBUTEROL/IPRATROPIUM 3 ML NEB RESP TX SCH ×4 (01:59→19:22)
[2016-12-13 04:02] LABS: ABG Base Excess 9.3 MMOL/L (-2.5-2.5); ABG Oxygen Saturation 93.3 % (95-100); ABG PCO2 66.8 MM HG (35-48); ABG PH 7.361 (7.35-7.45); ABG PO2 66.1 MM HG (80-95)
[2016-12-13 06:09] LABS: Hematocrit 37.8 VOL% (42.0-52.0); Hemoglobin 11.5 GM/DL (14.0-18.0); Immature Granulocytes % 0.7 %; Immature Granulocytes Absolute 0.04 #; Lymphocytes # 0.3 10*3/uL (1.4-4.0); Lymphocytes % 5.9 % (21.2-54.2); Mean Corpuscular HGB Conc 30.4 GM/DL (32-36); Mean Corpuscular Hemoglobin 34 PG (27-34); Mean Corpuscular Volume 112.5 FL (87-102); Mean Platelet Volume 9.6 FL (9.6-12.0); Monocytes # 0.2 10*3/uL (0.11-0.8); Monocytes % 4.4 % (1.7-12.7); NRBC # 0.02 10*3/uL; Neutrophils # 4.8 10*3/uL (1.4-7.4); Platelet Count 186 T/CUMM (130-400); Red Blood Count 3.36 MC/CUMM (3.8-5.5); White Blood Count 5.4 T/CUMM (4-12)
[2016-12-13] MEDS: methylPREDNISolone SOD SUC 40 MG/1 ML VIAL IV SCH ×3 (06:14→23:26)
[2016-12-13 06:35] LABS: Calcium 9.4 MG/DL (8.5-10.1); Magnesium 2.9 MG/DL (1.8-2.4); Osmolality,Calculated 311.9 MOS/KG (273-304); Potassium 3.6 MMOL/L (3.5-5.1)
[2016-12-13 06:39] LABS: Hypochromasia 1+; Macrocytosis Slight; Ovalocytes Slight; Platelet Estimate Normal
[2016-12-13 06:40] LABS: Giant Platelets Few
[2016-12-13] MEDS: LACTULOSE 20 GM/30 ML UDCUP PO PRN (09:22)
[2016-12-13] MEDS: TAMSULOSIN 0.4 MG CAPSULE PO SCH (09:22)
[2016-12-13] MEDS: PANTOPRAZOLE 40 MG TABLET PO SCH (09:22)
[2016-12-13] MEDS: ISOSORBIDE MONONITRATE 60 MG TABLET PO SCH (09:22)
[2016-12-13] MEDS: amLODIPine 10 MG TABLET PO SCH (09:23)
[2016-12-13] MEDS: CARVEDILOL 25 MG TABLET PO SCH ×2 (09:23→21:40)
[2016-12-13] MEDS: ALLOPURINOL 100 MG TABLET PO SCH ×3 (09:23→21:40)
[2016-12-13] MEDS: POTASSIUM CHLORIDE 20 MEQ TABLET PO SCH ×3 (09:23→21:41)
[2016-12-13] MEDS: DOCUSATE SODIUM 100 MG CAPSULE PO PRN (09:23)
[2016-12-13] MEDS: ASPIRIN EC 81 MG TABLET PO SCH (09:24)
[2016-12-13] MEDS: FUROSEMIDE 40 MG/4 ML VIAL IV SCH ×3 (09:24→21:40)
[2016-12-13 10:03] LABS: Immuno Free Light Chain Kappa 3.09 MG/DL (0.33-1.94)
[2016-12-13 10:04] LABS: Immuno Free Light Chain Ratio 0.53 MG/DL (0.26-1.65)
[2016-12-13 12:08] LABS: INR 1.1; PT Patient Result 11.6 SECS
[2016-12-13 15:36] LABS: Amylase,Body Fluid 15 U/L; LDH,Body Fluid 113 U/L; Total Protein,Body Fluid < 2.0 G/DL
[2016-12-13 15:45] LABS: RBC,Pleural Fluid 52 T/CUMM
[2016-12-13] MEDS: SILDENAFIL 20 MG TABLET PO SCH ×2 (16:23→21:41)
[2016-12-13] MEDS: ENOXAPARIN 40 MG/0.4 ML SYRINGE SUBCUT SCH (16:24)
[2016-12-13 17:44] LABS: Lymphocytes,Pleural Fluid 47 %; Monocytes,Pleural Fluid 13 %; Neutrophils,Pleural Fluid 40 %
[2016-12-14] MEDS: ALBUTEROL/IPRATROPIUM 3 ML NEB RESP TX SCH ×4 (00:07→18:58)
[2016-12-14] MEDS: methylPREDNISolone SOD SUC 40 MG/1 ML VIAL IV SCH ×3 (06:35→21:29)
[2016-12-14 09:31] LABS: Hematocrit 37.2 VOL% (42.0-52.0); Hemoglobin 11.9 GM/DL (14.0-18.0); Immature Granulocytes % 0.6 %; Immature Granulocytes Absolute 0.04 #; Lymphocytes # 0.3 10*3/uL (1.4-4.0); Lymphocytes % 4.7 % (21.2-54.2); Mean Corpuscular Hemoglobin 36 PG (27-34); Mean Platelet Volume 9.7 FL (9.6-12.0); Monocytes # 0.2 10*3/uL (0.11-0.8); Monocytes % 3.1 % (1.7-12.7); NRBC # 0.03 10*3/uL; Neutrophils # 5.7 10*3/uL (1.4-7.4); Neutrophils % 91.6 % (38.7-73.9); Platelet Count 173 T/CUMM (130-400); Red Blood Count 3.35 MC/CUMM (3.8-5.5); Red Cell Distribution Width 14.2 % (9.3-17.3); White Blood Count 6.2 T/CUMM (4-12)
[2016-12-14] MEDS: ALLOPURINOL 100 MG TABLET PO SCH (09:51)
[2016-12-14] MEDS: amLODIPine 10 MG TABLET PO SCH (09:55)
[2016-12-14] MEDS: TAMSULOSIN 0.4 MG CAPSULE PO SCH (09:55)
[2016-12-14] MEDS: POTASSIUM CHLORIDE 20 MEQ TABLET PO SCH ×3 (09:55→21:29)
[2016-12-14] MEDS: ASPIRIN EC 81 MG TABLET PO SCH (09:55)
[2016-12-14] MEDS: CARVEDILOL 25 MG TABLET PO SCH ×2 (09:56→21:30)
[2016-12-14] MEDS: FUROSEMIDE 40 MG/4 ML VIAL IV SCH ×2 (09:56→16:24)
[2016-12-14] MEDS: PANTOPRAZOLE 40 MG TABLET PO SCH (09:56)
[2016-12-14] MEDS: SILDENAFIL 20 MG TABLET PO SCH ×3 (09:56→21:29)
[2016-12-14] MEDS: ISOSORBIDE MONONITRATE 60 MG TABLET PO SCH (10:02)
[2016-12-14 10:04] LABS: Calcium 9.3 MG/DL (8.5-10.1); Magnesium 2.9 MG/DL (1.8-2.4); Potassium 3.6 MMOL/L (3.5-5.1)
[2016-12-14 10:10] LABS: Band Neutrophils 2 % (0-10); Lymphocytes 3 % (20-55); Segmented Neutrophils 94 % (50-85); Total Cells Counted 100
[2016-12-14] MEDS ORDERED: ALLOPURINOL 100 MG TABLET PO PRN (11:41)
[2016-12-14] MEDS: ENOXAPARIN 40 MG/0.4 ML SYRINGE SUBCUT SCH (13:41)
[2016-12-14] MEDS: FUROSEMIDE 80 MG TABLET PO SCH (16:21)
[2016-12-15] MEDS: ALBUTEROL/IPRATROPIUM 3 ML NEB RESP TX SCH ×3 (00:45→20:23)
[2016-12-15 03:41] LABS: Allen Test Positive; Pt O2 Delivery Device CPAP
[2016-12-15 03:43] LABS: ABG Base Excess 6.2 MMOL/L (-2.5-2.5); ABG Oxygen Saturation 94.9 % (95-100); ABG PCO2 52.9 MM HG (35-48); ABG PH 7.396 (7.35-7.45); ABG PO2 73.8 MM HG (80-95); ABG TCO2 29.2 MMOL/L (23-27)
[2016-12-15 05:34] LABS: Hematocrit 36.8 VOL% (42.0-52.0); Hemoglobin 11.7 GM/DL (14.0-18.0); Immature Granulocytes % 0.6 %; Immature Granulocytes Absolute 0.04 #; Lymphocytes # 0.3 10*3/uL (1.4-4.0); Mean Corpuscular HGB Conc 31.8 GM/DL (32-36); Mean Corpuscular Hemoglobin 35 PG (27-34); Mean Corpuscular Volume 110.5 FL (87-102); Mean Platelet Volume 10.2 FL (9.6-12.0); Monocytes # 0.2 10*3/uL (0.11-0.8); Monocytes % 3.2 % (1.7-12.7); Neutrophils % 91.2 % (38.7-73.9); Platelet Count 169 T/CUMM (130-400); Red Blood Count 3.33 MC/CUMM (3.8-5.5); White Blood Count 6.5 T/CUMM (4-12)
[2016-12-15] MEDS: methylPREDNISolone SOD SUC 40 MG/1 ML VIAL IV SCH ×3 (05:54→21:47)
[2016-12-15 06:00] LABS: Calcium 8.9 MG/DL (8.5-10.1); Magnesium 2.9 MG/DL (1.8-2.4); Potassium 3.8 MMOL/L (3.5-5.1)
[2016-12-15 06:51] LABS: Band Neutrophils 1 % (0-10); Hypochromasia Slight; Lymphocytes 7 % (20-55); Macrocytosis 1+; Nucleated Red Blood Cells 1 (0-5); Platelet Estimate Adequate; Segmented Neutrophils 91 % (50-85); Target Cells Slight; Total Cells Counted 100
[2016-12-15] MEDS: TAMSULOSIN 0.4 MG CAPSULE PO SCH (09:50)
[2016-12-15] MEDS: ISOSORBIDE MONONITRATE 60 MG TABLET PO SCH (09:50)
[2016-12-15] MEDS: POTASSIUM CHLORIDE 20 MEQ TABLET PO SCH ×3 (09:50→21:45)
[2016-12-15] MEDS: ASPIRIN EC 81 MG TABLET PO SCH (09:50)
[2016-12-15] MEDS: LACTULOSE 20 GM/30 ML UDCUP PO PRN (09:50)
[2016-12-15] MEDS: PANTOPRAZOLE 40 MG TABLET PO SCH (09:50)
[2016-12-15] MEDS: amLODIPine 10 MG TABLET PO SCH (09:50)
[2016-12-15] MEDS: DOCUSATE SODIUM 100 MG CAPSULE PO PRN (09:50)
[2016-12-15] MEDS: CARVEDILOL 25 MG TABLET PO SCH ×2 (09:51→21:51)
[2016-12-15] MEDS: FUROSEMIDE 80 MG TABLET PO SCH ×2 (09:51→16:32)
[2016-12-15] MEDS: SILDENAFIL 20 MG TABLET PO SCH ×3 (10:04→21:45)
[2016-12-15] MEDS: ENOXAPARIN 40 MG/0.4 ML SYRINGE SUBCUT SCH (14:40)
[2016-12-16] MEDS: ALBUTEROL/IPRATROPIUM 3 ML NEB RESP TX SCH (01:20)
[2016-12-16 04:45] LABS: Hematocrit 34.8 VOL% (42.0-52.0); Hemoglobin 11.1 GM/DL (14.0-18.0); Immature Granulocytes % 0.5 %; Immature Granulocytes Absolute 0.03 #; Lymphocytes # 0.3 10*3/uL (1.4-4.0); Lymphocytes % 4.7 % (21.2-54.2); Mean Corpuscular HGB Conc 31.9 GM/DL (32-36); Mean Corpuscular Hemoglobin 35 PG (27-34); Mean Corpuscular Volume 110.1 FL (87-102); Mean Platelet Volume 10.6 FL (9.6-12.0); Monocytes # 0.2 10*3/uL (0.11-0.8); Monocytes % 2.5 % (1.7-12.7); Neutrophils # 5.9 10*3/uL (1.4-7.4); Neutrophils % 92.3 % (38.7-73.9); Platelet Count 162 T/CUMM (130-400); Red Blood Count 3.16 MC/CUMM (3.8-5.5); Red Cell Distribution Width 14.1 % (9.3-17.3); White Blood Count 6.4 T/CUMM (4-12)
[2016-12-16 05:30] LABS: Calcium 8.8 MG/DL (8.5-10.1); Osmolality,Calculated 311.9 MOS/KG (273-304); Potassium 3.8 MMOL/L (3.5-5.1)
[2016-12-16 05:59] LABS: Lymphocytes 4 % (20-55); Platelet Estimate Normal; Segmented Neutrophils 93 % (50-85); Total Cells Counted 100
[2016-12-16 06:00] LABS: Giant Platelets Few; Hypochromasia 1+; Macrocytosis Slight; Ovalocytes Slight
[2016-12-16] MEDS: methylPREDNISolone SOD SUC 40 MG/1 ML VIAL IV SCH (06:07)
[2016-12-16] MEDS: TAMSULOSIN 0.4 MG CAPSULE PO SCH (09:55)
[2016-12-16] MEDS: POTASSIUM CHLORIDE 20 MEQ TABLET PO SCH (09:55)
[2016-12-16] MEDS: DOCUSATE SODIUM 100 MG CAPSULE PO PRN (09:56)
[2016-12-16] MEDS: FUROSEMIDE 80 MG TABLET PO SCH (09:56)
[2016-12-16] MEDS: amLODIPine 10 MG TABLET PO SCH (09:56)
[2016-12-16] MEDS: ASPIRIN EC 81 MG TABLET PO SCH (09:56)
[2016-12-16] MEDS: CARVEDILOL 25 MG TABLET PO SCH (09:56)
[2016-12-16] MEDS: PANTOPRAZOLE 40 MG TABLET PO SCH (09:56)
[2016-12-16] MEDS: ISOSORBIDE MONONITRATE 60 MG TABLET PO SCH (09:56)
[2016-12-16] MEDS: SILDENAFIL 20 MG TABLET PO SCH (09:56)
[2016-12-16 12:34] VITALS: BP 118/63
[2016-12-17] MEDS ORDERED: POTASSIUM CHLORIDE 20 MEQ TABLET PO SCH (09:00)
[2016-12-17] MEDS ORDERED: predniSONE 20 MG TABLET PO SCH (09:00)
== END 2016-12-16 14:12 | disposition home or self-care (01) | DRG 291 ==
LOC: N.TELEN 15:42 → INTOOBSV 15:42
PROVIDERS: ADMIT Internal Medicine Cardiovascular Disease; ATTEND Internal Medicine Cardiovascular Disease

== ENCOUNTER 2017-01-08 11:35 | Inpatient (IN) ==
[2017-01-08] MEDS ORDERED: CLINDAMYCIN INJ 600 MG in PREMIX 1 EACH IV STA (11:46)
[2017-01-08] MEDS ORDERED: PIPERACILLIN/TAZOBACTAM 3,375 MG in SODIUM CHLORIDE 0.9% 100 ML IV STA (11:46)
[2017-01-08] MEDS ORDERED: PROPOFOL 1,000 MG/100 ML BOTTLE IV ONE (11:52)
[2017-01-08] MEDS ORDERED: CLINDAMYCIN INJ 50 ML IV ONE (11:52)
[2017-01-08] MEDS ORDERED: PIPERACILLIN/TAZOBACTAM 3,375 MG VIAL IV ONE (11:52)
[2017-01-08] MEDS ORDERED: SODIUM CHLORIDE 0.9% 250 ML IV ONE (11:55)
[2017-01-08] MEDS: PROPOFOL 1,000 MG/100 ML BOTTLE IV SCH ×4 (12:00→23:39)
[2017-01-08 12:08] LABS: Eosinophils % 0.5 % (0.00-10.9); Hematocrit 35.9 VOL% (42.0-52.0); Hemoglobin 10.8 GM/DL (14.0-18.0); Immature Granulocytes % 0.7 %; Immature Granulocytes Absolute 0.03 #; Lymphocytes # 0.7 10*3/uL (1.4-4.0); Lymphocytes % 15.2 % (21.2-54.2); Mean Corpuscular HGB Conc 30.1 GM/DL (32-36); Mean Corpuscular Hemoglobin 35 PG (27-34); Mean Corpuscular Volume 114.7 FL (87-102); Mean Platelet Volume 10.6 FL (9.6-12.0); Monocytes # 0.3 10*3/uL (0.11-0.8); NRBC # 0.02 10*3/uL; Neutrophils # 3.4 10*3/uL (1.4-7.4); Neutrophils % 77.6 % (38.7-73.9); Platelet Count 128 T/CUMM (130-400); Red Blood Count 3.13 MC/CUMM (3.8-5.5); Red Cell Distribution Width 13.3 % (9.3-17.3); White Blood Count 4.3 T/CUMM (4-12)
[2017-01-08 12:30] LABS: Albumin 3.1 G/DL (3.4-5.0); Bilirubin,Total 1.4 MG/DL (0.2-1.0); Magnesium 2.3 MG/DL (1.8-2.4); Osmolality,Calculated 295.7 MOS/KG (273-304); Potassium 4.7 MMOL/L (3.5-5.1); Total Protein 6.7 G/DL (6.4-8.3); Troponin I Only 0.041 NG/ML (0.00-0.045)
[2017-01-08 12:55] LABS: Apearance,Urine CLEAR (Clear); Bacteria,Urine Occasional /HPF (Few); Bilirubin,Urine Negative (Negative); Blood, Urine Negative (Negative); Glucose,Urine (UA) 50 mg/dL (Negative); Ketones,Urine Negative (Negative); Nitrite,Urine Negative (Negative); Protein,Urine >=500 MG/DL; RBC,Urine 6 /HPF (0-4); Urine Color Yellow (Yellow); Urine Specific Gravity 1.007 (1.001-1.035); Urine Urobilinogen < 2.0 EU/DL (0.2-1.0); WBC,Urine 3 /HPF (0-6)
[2017-01-08 12:59] LABS: Pt O2 Delivery Device Ventilator
[2017-01-08 13:00] LABS: ABG Base Excess 6.6 MMOL/L (-2.5-2.5); ABG HCO3 34.2 MMOL/L (20-26); ABG Oxygen Saturation 99.2 % (95-100); ABG PCO2 66.9 MM HG (35-48); ABG PH 7.326 (7.35-7.45); ABG PO2 208.3 MM HG (80-95); ABG TCO2 36.2 MMOL/L (23-27)
[2017-01-08] MEDS ORDERED: ALBUTEROL 2.5 MG/3 ML NEB RESP TX PRN (13:11)
[2017-01-08] MEDS ORDERED: ONDANSETRON 4 MG/2 ML VIAL IV PRN (13:16)
[2017-01-08 13:24] LABS: Macrocytosis 2+
[2017-01-08] MEDS ORDERED: SODIUM CHLORIDE 0.9% 1,000 ML IV SCH (13:30)
[2017-01-08] MEDS: CLINDAMYCIN INJ 600 MG in PREMIX 1 EACH IV SCH ×2 (14:46→22:10)
[2017-01-08] MEDS ORDERED: hydrALAZINE 20 MG/1 ML VIAL IV PRN (16:34)
[2017-01-08] MEDS: ENOXAPARIN 40 MG/0.4 ML SYRINGE SUBCUT SCH (17:38)
[2017-01-08 17:44] LABS: ABG HCO3 31.8 MMOL/L (20-26); ABG PCO2 41.8 MM HG (35-48); ABG PH 7.493 (7.35-7.45); ABG TCO2 28.9 MMOL/L (23-27)
[2017-01-08] MEDS: ALBUTEROL/IPRATROPIUM 3 ML NEB RESP TX SCH (20:31)
[2017-01-08] MEDS: PIPERACILLIN/TAZOBACTAM 3,375 MG in SODIUM CHLORIDE 0.9% 100 ML IV SCH (20:40)
[2017-01-08] MEDS: CARVEDILOL 25 MG TABLET PO SCH (22:10)
[2017-01-09] MEDS: ALBUTEROL/IPRATROPIUM 3 ML NEB RESP TX SCH ×4 (00:36→20:52)
[2017-01-09] MEDS: PROPOFOL 1,000 MG/100 ML BOTTLE IV SCH ×4 (02:15→12:39)
[2017-01-09 04:10] LABS: ABG Base Excess 9.6 MMOL/L (-2.5-2.5); ABG HCO3 33.4 MMOL/L (20-26); ABG Oxygen Saturation 99.4 % (95-100); ABG PCO2 41.9 MM HG (35-48); ABG PH 7.512 (7.35-7.45); ABG TCO2 29.4 MMOL/L (23-27); Allen Test Positive; Pt O2 Delivery Device Ventilator
[2017-01-09] MEDS: PIPERACILLIN/TAZOBACTAM 3,375 MG in SODIUM CHLORIDE 0.9% 100 ML IV SCH ×3 (04:50→20:32)
[2017-01-09 04:57] LABS: Hematocrit 32.4 VOL% (42.0-52.0); Hemoglobin 10.4 GM/DL (14.0-18.0); Immature Granulocytes % 0.5 %; Immature Granulocytes Absolute 0.03 #; Lymphocytes # 0.3 10*3/uL (1.4-4.0); Lymphocytes % 5.1 % (21.2-54.2); Mean Corpuscular HGB Conc 32.1 GM/DL (32-36); Mean Corpuscular Hemoglobin 34 PG (27-34); Mean Corpuscular Volume 106.9 FL (87-102); Mean Platelet Volume 10.1 FL (9.6-12.0); Monocytes # 0.3 10*3/uL (0.11-0.8); Monocytes % 4.3 % (1.7-12.7); NRBC # 0.02 10*3/uL; Neutrophils # 5.6 10*3/uL (1.4-7.4); Neutrophils % 90.1 % (38.7-73.9); Platelet Count 109 T/CUMM (130-400); Red Blood Count 3.03 MC/CUMM (3.8-5.5); Red Cell Distribution Width 13.2 % (9.3-17.3); White Blood Count 6.3 T/CUMM (4-12)
[2017-01-09 05:23] LABS: Albumin 2.7 G/DL (3.4-5.0); Bilirubin,Total 1.9 MG/DL (0.2-1.0); Calcium 8.5 MG/DL (8.5-10.1); Osmolality,Calculated 300.3 MOS/KG (273-304); Potassium 3.8 MMOL/L (3.5-5.1); Total Protein 6.1 G/DL (6.4-8.3)
[2017-01-09 05:30] LABS: Magnesium 2.1 MG/DL (1.8-2.4); Thyroid Stimulating Hormone 0.134 uIU/ml (0.358-3.74); VLDL CHOLESTEROL 21.4 MG/DL
[2017-01-09] MEDS: CLINDAMYCIN INJ 600 MG in PREMIX 1 EACH IV SCH ×3 (06:35→22:19)
[2017-01-09] MEDS: CARVEDILOL 25 MG TABLET PO SCH ×2 (08:27→22:19)
[2017-01-09] MEDS: amLODIPine 10 MG TABLET PO SCH (08:27)
[2017-01-09] MEDS: ASPIRIN EC 81 MG TABLET PO SCH (08:27)
[2017-01-09] MEDS: FUROSEMIDE 80 MG TABLET PO SCH ×2 (08:27→16:08)
[2017-01-09] MEDS ORDERED: DEXTROSE 50% 25 GM/50 ML VIAL IV PRN (13:16)
[2017-01-09] MEDS ORDERED: GLUCAGON 1 MG VIAL IM PRN (13:16)
[2017-01-09] MEDS: ENOXAPARIN 40 MG/0.4 ML SYRINGE SUBCUT SCH (16:07)
[2017-01-09] MEDS: INSULIN REGULAR 100 UNIT/ML SUBCUT SCH (18:10)
[2017-01-10] MEDS: ALBUTEROL/IPRATROPIUM 3 ML NEB RESP TX SCH ×4 (00:17→19:37)
[2017-01-10] MEDS: PROPOFOL 1,000 MG/100 ML BOTTLE IV SCH ×3 (01:00→22:08)
[2017-01-10] MEDS: INSULIN REGULAR 100 UNIT/ML SUBCUT SCH ×4 (01:08→17:36)
[2017-01-10] MEDS: PIPERACILLIN/TAZOBACTAM 3,375 MG in SODIUM CHLORIDE 0.9% 100 ML IV SCH ×3 (04:20→21:39)
[2017-01-10 04:33] LABS: ABG Base Excess 10.5 MMOL/L (-2.5-2.5); ABG HCO3 34.2 MMOL/L (20-26); ABG Oxygen Saturation 97.6 % (95-100); ABG PCO2 36.9 MM HG (35-48); ABG PH 7.566 (7.35-7.45); ABG PO2 83.2 MM HG (80-95); ABG TCO2 30.6 MMOL/L (23-27)
[2017-01-10 05:24] LABS: Basophils % 0.2 % (0.0-0.8); Hematocrit 28.7 VOL% (42.0-52.0); Hemoglobin 9.4 GM/DL (14.0-18.0); Immature Granulocytes % 0.7 %; Immature Granulocytes Absolute 0.03 #; Lymphocytes # 0.7 10*3/uL (1.4-4.0); Mean Corpuscular HGB Conc 32.8 GM/DL (32-36); Mean Corpuscular Hemoglobin 34 PG (27-34); Mean Corpuscular Volume 104.4 FL (87-102); Mean Platelet Volume 10.6 FL (9.6-12.0); Monocytes # 0.1 10*3/uL (0.11-0.8); Monocytes % 2.2 % (1.7-12.7); Neutrophils # 3.2 10*3/uL (1.4-7.4); Neutrophils % 78.9 % (38.7-73.9); Platelet Count 115 T/CUMM (130-400); Red Blood Count 2.75 MC/CUMM (3.8-5.5); Red Cell Distribution Width 13.9 % (9.3-17.3); White Blood Count 4.1 T/CUMM (4-12)
[2017-01-10 05:47] LABS: Calcium 8.1 MG/DL (8.5-10.1); Magnesium 2.2 MG/DL (1.8-2.4); Osmolality,Calculated 304.1 MOS/KG (273-304); Potassium 3.3 MMOL/L (3.5-5.1)
[2017-01-10 05:49] LABS: Prealbumin 11.2 MG/DL (20-40)
[2017-01-10] MEDS: CLINDAMYCIN INJ 600 MG in PREMIX 1 EACH IV SCH ×3 (07:32→23:08)
[2017-01-10] MEDS: FUROSEMIDE 80 MG TABLET PO SCH ×2 (08:03→15:55)
[2017-01-10] MEDS ORDERED: ATROPINE 1 MG/1 ML VIAL ONE (09:09)
[2017-01-10] MEDS: CARVEDILOL 25 MG TABLET PO SCH ×2 (09:56→21:40)
[2017-01-10] MEDS: amLODIPine 10 MG TABLET PO SCH (09:56)
[2017-01-10] MEDS: ASPIRIN EC 81 MG TABLET PO SCH (09:56)
[2017-01-10 13:32] LABS: Procalcitonin, S < 0.10 ng/mL (<=0.15)
[2017-01-10] MEDS: ENOXAPARIN 40 MG/0.4 ML SYRINGE SUBCUT SCH (14:35)
[2017-01-10] MEDS ORDERED: POTASSIUM CHLORIDE 20 MEQ/15 ML UDCUP PO ONE (16:11)
[2017-01-10] MEDS: FILGRASTIM-SNDZ 480 MCG/0.8 ML SYRINGE SUBCUT SCH (16:44)
[2017-01-11] MEDS: INSULIN REGULAR 100 UNIT/ML SUBCUT SCH ×4 (00:34→17:47)
[2017-01-11] MEDS: ALBUTEROL/IPRATROPIUM 3 ML NEB RESP TX SCH ×4 (01:07→19:28)
[2017-01-11 02:46] LABS: ABG Base Excess 9.2 MMOL/L (-2.5-2.5); ABG HCO3 30.8 MMOL/L (20-26); ABG Oxygen Saturation 98.8 % (95-100); ABG PCO2 31.7 MM HG (35-48); ABG PH 7.605 (7.35-7.45); ABG PO2 142.3 MM HG (80-95); ABG TCO2 31.7 MMOL/L (23-27); Allen Test Positive; Pt O2 Delivery Device Ventilator
[2017-01-11 04:36] LABS: Basophils % 0.3 % (0.0-0.8); Eosinophils % 0.7 % (0.00-10.9); Immature Granulocytes % 2.4 %; Immature Granulocytes Absolute 0.14 #; Lymphocytes # 0.6 10*3/uL (1.4-4.0); Lymphocytes % 10.9 % (21.2-54.2); Mean Corpuscular HGB Conc 32.1 GM/DL (32-36); Mean Corpuscular Hemoglobin 34 PG (27-34); Mean Corpuscular Volume 106.9 FL (87-102); Mean Platelet Volume 10.6 FL (9.6-12.0); Monocytes # 0.1 10*3/uL (0.11-0.8); Monocytes % 0.9 % (1.7-12.7); Neutrophils # 4.9 10*3/uL (1.4-7.4); Neutrophils % 84.8 % (38.7-73.9); Platelet Count 105 T/CUMM (130-400); Red Blood Count 2.62 MC/CUMM (3.8-5.5); Red Cell Distribution Width 13.6 % (9.3-17.3); White Blood Count 5.8 T/CUMM (4-12)
[2017-01-11] MEDS: PIPERACILLIN/TAZOBACTAM 3,375 MG in SODIUM CHLORIDE 0.9% 100 ML IV SCH ×3 (04:54→20:58)
[2017-01-11 05:12] LABS: Calcium 7.9 MG/DL (8.5-10.1); Magnesium 2.3 MG/DL (1.8-2.4); Osmolality,Calculated 310.6 MOS/KG (273-304)
[2017-01-11 05:53] LABS: Lymphocytes 10 % (20-55); Segmented Neutrophils 90 % (50-85); Total Cells Counted 100
[2017-01-11 05:54] LABS: Platelet Estimate Adequate
[2017-01-11] MEDS: CLINDAMYCIN INJ 600 MG in PREMIX 1 EACH IV SCH ×3 (06:23→22:12)
[2017-01-11] MEDS: FUROSEMIDE 80 MG TABLET PO SCH (08:36)
[2017-01-11] MEDS: ASPIRIN EC 81 MG TABLET PO SCH (08:44)
[2017-01-11] MEDS: CARVEDILOL 25 MG TABLET PO SCH ×2 (08:44→20:58)
[2017-01-11] MEDS: amLODIPine 10 MG TABLET PO SCH (08:44)
[2017-01-11] MEDS: POTASSIUM CHLORIDE 20 MEQ/15 ML UDCUP PER TUBE SCH ×3 (08:44→15:59)
[2017-01-11] MEDS: FILGRASTIM-SNDZ 480 MCG/0.8 ML SYRINGE SUBCUT SCH (08:45)
[2017-01-11] MEDS: PROPOFOL 1,000 MG/100 ML BOTTLE IV SCH ×3 (11:40→23:45)
[2017-01-11] MEDS: ENOXAPARIN 40 MG/0.4 ML SYRINGE SUBCUT SCH (15:57)
[2017-01-11] MEDS: FUROSEMIDE 40 MG TABLET PO SCH (15:59)
[2017-01-11 16:21] LABS: Lymphocytes,Pleural Fluid 3 %; Neutrophils,Pleural Fluid 97 %; RBC,Pleural Fluid 2896 T/CUMM
[2017-01-12] MEDS: INSULIN REGULAR 100 UNIT/ML SUBCUT SCH ×4 (00:20→18:45)
[2017-01-12] MEDS: ALBUTEROL/IPRATROPIUM 3 ML NEB RESP TX SCH ×4 (01:54→20:47)
[2017-01-12 03:06] LABS: Pt O2 Delivery Device Ventilator
[2017-01-12 03:07] LABS: ABG Base Excess 7.9 MMOL/L (-2.5-2.5); ABG HCO3 31.7 MMOL/L (20-26); ABG PCO2 34.2 MM HG (35-48); ABG PH 7.559 (7.35-7.45); ABG TCO2 28.2 MMOL/L (23-27)
[2017-01-12 04:24] LABS: Basophils % 0.5 % (0.0-0.8); Eosinophils # 0.1 10*3/uL (0.0-0.87); Eosinophils % 3.2 % (0.00-10.9); Hematocrit 28.8 VOL% (42.0-52.0); Hemoglobin 9.1 GM/DL (14.0-18.0); Immature Granulocytes % 9.3 %; Lymphocytes # 0.4 10*3/uL (1.4-4.0); Lymphocytes % 17.1 % (21.2-54.2); Mean Corpuscular HGB Conc 31.6 GM/DL (32-36); Mean Corpuscular Hemoglobin 34 PG (27-34); Mean Corpuscular Volume 108.3 FL (87-102); Mean Platelet Volume 11.3 FL (9.6-12.0); Monocytes % 1.4 % (1.7-12.7); Neutrophils # 1.5 10*3/uL (1.4-7.4); Neutrophils % 68.5 % (38.7-73.9); Platelet Count 104 T/CUMM (130-400); Red Blood Count 2.66 MC/CUMM (3.8-5.5); Red Cell Distribution Width 13.7 % (9.3-17.3); White Blood Count 2.2 T/CUMM (4-12)
[2017-01-12] MEDS: PROPOFOL 1,000 MG/100 ML BOTTLE IV SCH ×6 (04:35→21:41)
[2017-01-12] MEDS: PIPERACILLIN/TAZOBACTAM 3,375 MG in SODIUM CHLORIDE 0.9% 100 ML IV SCH ×3 (04:36→20:23)
[2017-01-12 04:52] LABS: Calcium 8.1 MG/DL (8.5-10.1); Magnesium 2.4 MG/DL (1.8-2.4); Osmolality,Calculated 312.4 MOS/KG (273-304); Potassium 3.4 MMOL/L (3.5-5.1)
[2017-01-12] MEDS: CLINDAMYCIN INJ 600 MG in PREMIX 1 EACH IV SCH ×3 (06:07→22:10)
[2017-01-12 07:34] LABS: Eosinophils 2 % (0-10); Hypochromasia 1+; Lymphocytes 21 % (20-55); Macrocytosis Slight; Metamyelocytes 1 %; Platelet Estimate Adequate; Segmented Neutrophils 73 % (50-85); Total Cells Counted 100
[2017-01-12] MEDS: CARVEDILOL 25 MG TABLET PO SCH ×2 (09:42→20:22)
[2017-01-12] MEDS: amLODIPine 10 MG TABLET PO SCH (09:42)
[2017-01-12] MEDS: ASPIRIN EC 81 MG TABLET PO SCH (09:42)
[2017-01-12] MEDS: FUROSEMIDE 40 MG TABLET PO SCH ×2 (09:42→16:21)
[2017-01-12] MEDS: FILGRASTIM-SNDZ 480 MCG/0.8 ML SYRINGE SUBCUT SCH (09:56)
[2017-01-12] MEDS: DEXTROSE 5% 1,000 ML IV SCH (12:27)
[2017-01-12 14:13] LABS: ABG Base Excess 5.3 MMOL/L (-2.5-2.5); ABG HCO3 29.3 MMOL/L (20-26); ABG PCO2 49.4 MM HG (35-48); ABG PH 7.405 (7.35-7.45); ABG TCO2 28.4 MMOL/L (23-27)
[2017-01-12] MEDS: ENOXAPARIN 40 MG/0.4 ML SYRINGE SUBCUT SCH (15:58)
[2017-01-13] MEDS: ALBUTEROL/IPRATROPIUM 3 ML NEB RESP TX SCH ×4 (01:22→20:11)
[2017-01-13] MEDS: INSULIN REGULAR 100 UNIT/ML SUBCUT SCH ×4 (02:25→17:24)
[2017-01-13] MEDS: PIPERACILLIN/TAZOBACTAM 3,375 MG in SODIUM CHLORIDE 0.9% 100 ML IV SCH ×3 (03:31→21:15)
[2017-01-13] MEDS: PROPOFOL 1,000 MG/100 ML BOTTLE IV SCH ×3 (03:55→20:01)
[2017-01-13 04:24] LABS: ABG Base Excess 6.2 MMOL/L (-2.5-2.5); ABG HCO3 30.1 MMOL/L (20-26); ABG Oxygen Saturation 95.1 % (95-100); ABG PCO2 37.5 MM HG (35-48); ABG PH 7.506 (7.35-7.45); ABG PO2 68.9 MM HG (80-95); ABG TCO2 27.7 MMOL/L (23-27); Allen Test Positive; Pt O2 Delivery Device Ventilator
[2017-01-13 05:47] LABS: Basophils % 6.6 % (0.0-0.8); Eosinophils % 6.6 % (0.00-10.9); Hematocrit 28.6 VOL% (42.0-52.0); Hemoglobin 8.9 GM/DL (14.0-18.0); Immature Granulocytes % 8.2 %; Immature Granulocytes Absolute 0.05 #; Lymphocytes # 0.4 10*3/uL (1.4-4.0); Lymphocytes % 57.4 % (21.2-54.2); Mean Corpuscular HGB Conc 31.1 GM/DL (32-36); Mean Corpuscular Hemoglobin 34 PG (27-34); Monocytes # 0.1 10*3/uL (0.11-0.8); Monocytes % 11.5 % (1.7-12.7); Neutrophils # 0.1 10*3/uL (1.4-7.4); Neutrophils % 9.7 % (38.7-73.9); Red Cell Distribution Width 13.5 % (9.3-17.3)
[2017-01-13 06:10] LABS: Platelet Count 92 T/CUMM (130-400)
[2017-01-13 06:11] LABS: White Blood Count 0.6 T/CUMM (4-12)
[2017-01-13 06:31] LABS: Calcium 7.8 MG/DL (8.5-10.1); Osmolality,Calculated 310.6 MOS/KG (273-304); Potassium 3.2 MMOL/L (3.5-5.1)
[2017-01-13] MEDS: CLINDAMYCIN INJ 600 MG in PREMIX 1 EACH IV SCH ×3 (06:34→23:10)
[2017-01-13] MEDS: DEXTROSE 5% 1,000 ML IV SCH (06:35)
[2017-01-13 07:54] LABS: Eosinophils 16 % (0-10); Lymphocytes 56 % (20-55); Platelet Estimate Decreased; Segmented Neutrophils 16 % (50-85); Total Cells Counted 100
[2017-01-13 07:55] LABS: Giant Platelets Few; Hypochromasia 1+; Microcytosis Slight; Ovalocytes Slight
[2017-01-13] MEDS: amLODIPine 10 MG TABLET PO SCH (08:30)
[2017-01-13] MEDS: FUROSEMIDE 40 MG TABLET PO SCH ×2 (09:41→15:37)
[2017-01-13] MEDS: FILGRASTIM-SNDZ 480 MCG/0.8 ML SYRINGE SUBCUT SCH (09:42)
[2017-01-13] MEDS: CARVEDILOL 25 MG TABLET PO SCH ×2 (09:42→22:52)
[2017-01-13] MEDS: MULTIVITAMIN LIQUID (CENTRUM) 60 ML BOTTLE PER TUBE SCH (09:42)
[2017-01-13] MEDS: ASPIRIN CHEW 81 MG TABLET PO SCH (09:42)
[2017-01-13] MEDS: POTASSIUM CHLORIDE 20 MEQ/15 ML UDCUP PO SCH ×3 (13:31→23:10)
[2017-01-13] MEDS: ENOXAPARIN 40 MG/0.4 ML SYRINGE SUBCUT SCH (15:38)
[2017-01-13] MEDS: FLUCONAZOLE INJ 200 MG in PREMIX 1 EACH IV SCH (18:23)
[2017-01-14] MEDS: INSULIN REGULAR 100 UNIT/ML SUBCUT SCH ×4 (01:02→17:57)
[2017-01-14] MEDS: ALBUTEROL/IPRATROPIUM 3 ML NEB RESP TX SCH ×4 (01:28→20:03)
[2017-01-14] MEDS: DEXTROSE 5% 1,000 ML IV SCH ×3 (01:50→23:17)
[2017-01-14] MEDS: POTASSIUM CHLORIDE 20 MEQ/15 ML UDCUP PO SCH ×2 (01:50→09:14)
[2017-01-14 04:07] LABS: Allen Test Positive; Pt O2 Delivery Device Ventilator
[2017-01-14 04:14] LABS: ABG Base Excess 4.6 MMOL/L (-2.5-2.5); ABG HCO3 28.1 MMOL/L (20-26); ABG Oxygen Saturation 98.9 % (95-100); ABG PCO2 36.8 MM HG (35-48); ABG PO2 165.5 MM HG (80-95); ABG TCO2 29.2 MMOL/L (23-27)
[2017-01-14] MEDS: PIPERACILLIN/TAZOBACTAM 3,375 MG in SODIUM CHLORIDE 0.9% 100 ML IV SCH ×3 (05:05→21:26)
[2017-01-14] MEDS: CLINDAMYCIN INJ 600 MG in PREMIX 1 EACH IV SCH ×3 (05:30→23:13)
[2017-01-14 06:02] LABS: Eosinophils % 4.2 % (0.00-10.9); Hematocrit 25.3 VOL% (42.0-52.0); Hemoglobin 7.7 GM/DL (14.0-18.0); Immature Granulocytes % 4.2 %; Immature Granulocytes Absolute 0.02 #; Lymphocytes # 0.3 10*3/uL (1.4-4.0); Lymphocytes % 70.8 % (21.2-54.2); Mean Corpuscular HGB Conc 30.4 GM/DL (32-36); Mean Corpuscular Hemoglobin 33 PG (27-34); Mean Corpuscular Volume 109.5 FL (87-102); Mean Platelet Volume 11.5 FL (9.6-12.0); Monocytes # 0.1 10*3/uL (0.11-0.8); Monocytes % 14.6 % (1.7-12.7); Neutrophils % 6.2 % (38.7-73.9); Platelet Count 106 T/CUMM (130-400); Red Blood Count 2.31 MC/CUMM (3.8-5.5); Red Cell Distribution Width 13.5 % (9.3-17.3)
[2017-01-14 06:08] LABS: White Blood Count 0.5 T/CUMM (4-12)
[2017-01-14 06:39] LABS: Calcium 8.1 MG/DL (8.5-10.1); Potassium 3.8 MMOL/L (3.5-5.1)
[2017-01-14 07:29] LABS: Band Neutrophils 4 % (0-10)
[2017-01-14 07:30] LABS: Eosinophils 13 % (0-10); Hypochromasia 2+; Lymphocytes 78 % (20-55); Segmented Neutrophils 4 % (50-85); Total Cells Counted 99
[2017-01-14 07:31] LABS: Anisocytosis 1+; Macrocytosis 1+; Platelet Estimate Decreased; Target Cells 2+
[2017-01-14] MEDS: amLODIPine 10 MG TABLET PO SCH (09:06)
[2017-01-14] MEDS: CARVEDILOL 25 MG TABLET PO SCH ×2 (09:13→22:04)
[2017-01-14] MEDS: FUROSEMIDE 40 MG TABLET PO SCH ×2 (09:13→16:48)
[2017-01-14] MEDS: FILGRASTIM-SNDZ 480 MCG/0.8 ML SYRINGE SUBCUT SCH (09:13)
[2017-01-14] MEDS: ASPIRIN CHEW 81 MG TABLET PO SCH (09:13)
[2017-01-14] MEDS: MULTIVITAMIN LIQUID (CENTRUM) 60 ML BOTTLE PER TUBE SCH (09:13)
[2017-01-14] MEDS ORDERED: SODIUM CHLORIDE 0.9% 1,000 ML IV PRN (09:40)
[2017-01-14] MEDS: PROPOFOL 1,000 MG/100 ML BOTTLE IV SCH ×2 (13:58→20:31)
[2017-01-14] MEDS: ENOXAPARIN 40 MG/0.4 ML SYRINGE SUBCUT SCH (15:27)
[2017-01-14] MEDS: FLUCONAZOLE INJ 200 MG in PREMIX 1 EACH IV SCH (16:48)
[2017-01-15] MEDS: INSULIN REGULAR 100 UNIT/ML SUBCUT SCH ×4 (00:26→18:10)
[2017-01-15] MEDS: ALBUTEROL/IPRATROPIUM 3 ML NEB RESP TX SCH ×4 (01:15→19:25)
[2017-01-15 03:27] LABS: ABG Base Excess 3.5 MMOL/L (-2.5-2.5); ABG HCO3 27.6 MMOL/L (20-26); ABG Oxygen Saturation 99.3 % (95-100); ABG PCO2 37.9 MM HG (35-48); ABG PH 7.467 (7.35-7.45); ABG TCO2 25.1 MMOL/L (23-27); Pt O2 Delivery Device Ventilator
[2017-01-15] MEDS: PIPERACILLIN/TAZOBACTAM 3,375 MG in SODIUM CHLORIDE 0.9% 100 ML IV SCH ×3 (04:40→21:02)
[2017-01-15] MEDS: DESITIN 4OZ/NYSTATIN 15 GRAM MIXTURE PASTE TOP SCH ×3 (04:41→21:04)
[2017-01-15] MEDS: PROPOFOL 1,000 MG/100 ML BOTTLE IV SCH ×2 (04:42→12:17)
[2017-01-15] MEDS: DEXTROSE 5% 1,000 ML IV SCH (05:16)
[2017-01-15 06:05] LABS: Basophils % 0.9 % (0.0-0.8); Eosinophils % 0.9 % (0.00-10.9); Hematocrit 28.9 VOL% (42.0-52.0); Immature Granulocytes % 14.3 %; Immature Granulocytes Absolute 0.16 #; Lymphocytes # 0.4 10*3/uL (1.4-4.0); Lymphocytes % 36.6 % (21.2-54.2); Mean Corpuscular HGB Conc 31.1 GM/DL (32-36); Mean Corpuscular Hemoglobin 33 PG (27-34); Mean Corpuscular Volume 105.1 FL (87-102); Mean Platelet Volume 11.3 FL (9.6-12.0); Monocytes # 0.3 10*3/uL (0.11-0.8); Monocytes % 24.1 % (1.7-12.7); NRBC # 0.04 10*3/uL; Neutrophils # 0.3 10*3/uL (1.4-7.4); Neutrophils % 23.2 % (38.7-73.9); Platelet Count 128 T/CUMM (130-400); Red Blood Count 2.75 MC/CUMM (3.8-5.5); Red Cell Distribution Width 17.4 % (9.3-17.3); White Blood Count 1.1 T/CUMM (4-12)
[2017-01-15] MEDS: CLINDAMYCIN INJ 600 MG in PREMIX 1 EACH IV SCH (06:20)
[2017-01-15 06:37] LABS: Calcium 8.2 MG/DL (8.5-10.1); Magnesium 2.2 MG/DL (1.8-2.4); Osmolality,Calculated 305.3 MOS/KG (273-304); Phosphorous 2.8 MG/DL (2.5-4.9); Potassium 3.4 MMOL/L (3.5-5.1)
[2017-01-15 06:42] LABS: Band Neutrophils 6 % (0-10); Eosinophils 2 % (0-10); Lymphocytes 51 % (20-55); Myelocytes 2 %; Nucleated Red Blood Cells 7 (0-5); Segmented Neutrophils 15 % (50-85); Total Cells Counted 100
[2017-01-15 06:43] LABS: Giant Platelets Few; Hypochromasia 1+; Microcytosis Slight; Ovalocytes Slight; Platelet Estimate Normal
[2017-01-15] MEDS: FUROSEMIDE 40 MG TABLET PO SCH (09:16)
[2017-01-15] MEDS: ASPIRIN CHEW 81 MG TABLET PO SCH (09:16)
[2017-01-15] MEDS: MULTIVITAMIN LIQUID (CENTRUM) 60 ML BOTTLE PER TUBE SCH (09:16)
[2017-01-15] MEDS: FILGRASTIM-SNDZ 480 MCG/0.8 ML SYRINGE SUBCUT SCH (09:16)
[2017-01-15] MEDS: CARVEDILOL 25 MG TABLET PO SCH ×2 (09:17→21:07)
[2017-01-15] MEDS: amLODIPine 10 MG TABLET PO SCH (09:17)
[2017-01-15 11:38] LABS: ABG Base Excess 2.5 MMOL/L (-2.5-2.5); ABG HCO3 26.6 MMOL/L (20-26); ABG Oxygen Saturation 94.5 % (95-100); ABG PCO2 54.7 MM HG (35-48); ABG PH 7.335 (7.35-7.45); ABG PO2 76.5 MM HG (80-95); ABG TCO2 27.1 MMOL/L (23-27); Allen Test Positive
[2017-01-15 13:39] LABS: ABG HCO3 25.6 MMOL/L (20-26); ABG PCO2 62.8 MM HG (35-48); ABG PH 7.278 (7.35-7.45); ABG PO2 83.4 MM HG (80-95); Allen Test Positive
[2017-01-15] MEDS: ENOXAPARIN 40 MG/0.4 ML SYRINGE SUBCUT SCH (13:39)
[2017-01-15 13:40] LABS: ABG Base Excess 1.3 MMOL/L (-2.5-2.5); ABG Oxygen Saturation 95.4 % (95-100); ABG TCO2 27.3 MMOL/L (23-27)
[2017-01-15] MEDS ORDERED: POTASSIUM CHLORIDE RIDER 0 ML IV ONE (14:24)
[2017-01-15] MEDS: POTASSIUM CHLORIDE INJ 40 MEQ in DEXTROSE 5% 1,000 ML IV SCH (15:09)
[2017-01-15] MEDS: FLUCONAZOLE INJ 200 MG in PREMIX 1 EACH IV SCH (16:39)
[2017-01-16] MEDS: INSULIN REGULAR 100 UNIT/ML SUBCUT SCH ×4 (01:29→18:04)
[2017-01-16] MEDS: POTASSIUM CHLORIDE INJ 40 MEQ in DEXTROSE 5% 1,000 ML IV SCH ×3 (01:30→21:45)
[2017-01-16 04:22] LABS: ABG Base Excess 1.3 MMOL/L (-2.5-2.5); ABG HCO3 25.4 MMOL/L (20-26); ABG Oxygen Saturation 88.2 % (95-100); ABG PH 7.227 (7.35-7.45); ABG PO2 60.4 MM HG (80-95); ABG TCO2 28.8 MMOL/L (23-27); Allen Test Positive
[2017-01-16] MEDS: ALBUTEROL/IPRATROPIUM 3 ML NEB RESP TX SCH ×4 (04:30→19:15)
[2017-01-16 04:38] LABS: ABG PCO2 73.8 MM HG (35-48)
[2017-01-16] MEDS: PIPERACILLIN/TAZOBACTAM 3,375 MG in SODIUM CHLORIDE 0.9% 100 ML IV SCH ×3 (05:10→20:12)
[2017-01-16 05:11] LABS: Basophils # 0.1 10*3/uL (0.0-0.2); Basophils % 1.3 % (0.0-0.8); Eosinophils % 0.1 % (0.00-10.9); Hematocrit 32.6 VOL% (42.0-52.0); Hemoglobin 9.9 GM/DL (14.0-18.0); Immature Granulocytes % 9.9 %; Immature Granulocytes Absolute 0.67 #; Lymphocytes # 0.7 10*3/uL (1.4-4.0); Lymphocytes % 9.7 % (21.2-54.2); Mean Corpuscular HGB Conc 30.4 GM/DL (32-36); Mean Corpuscular Hemoglobin 33 PG (27-34); Mean Corpuscular Volume 109.8 FL (87-102); Mean Platelet Volume 11.3 FL (9.6-12.0); Monocytes # 0.9 10*3/uL (0.11-0.8); Monocytes % 12.8 % (1.7-12.7); NRBC # 0.24 10*3/uL; Neutrophils # 4.5 10*3/uL (1.4-7.4); Neutrophils % 66.2 % (38.7-73.9); Platelet Count 166 T/CUMM (130-400); Red Blood Count 2.97 MC/CUMM (3.8-5.5); Red Cell Distribution Width 17.3 % (9.3-17.3); White Blood Count 6.8 T/CUMM (4-12)
[2017-01-16 05:40] LABS: Calcium 8.8 MG/DL (8.5-10.1); Magnesium 2.4 MG/DL (1.8-2.4); Osmolality,Calculated 301.6 MOS/KG (273-304); Potassium 3.7 MMOL/L (3.5-5.1)
[2017-01-16 05:49] LABS: Band Neutrophils 10 % (0-10); Hypochromasia 1+; Lymphocytes 10 % (20-55); Myelocytes 1 %; Nucleated Red Blood Cells 2 (0-5); Platelet Estimate Normal; Segmented Neutrophils 67 % (50-85); Total Cells Counted 100
[2017-01-16 05:50] LABS: Giant Platelets Few; Microcytosis Slight
[2017-01-16 06:02] LABS: ABG Base Excess 2.3 MMOL/L (-2.5-2.5); ABG HCO3 28.3 MMOL/L (20-26); ABG Oxygen Saturation 93.6 % (95-100); ABG PCO2 50.7 MM HG (35-48); ABG PH 7.364 (7.35-7.45); ABG PO2 62.4 MM HG (80-95); ABG TCO2 29.8 MMOL/L (23-27)
[2017-01-16] MEDS: MULTIVITAMIN LIQUID (CENTRUM) 60 ML BOTTLE PER TUBE SCH (08:27)
[2017-01-16] MEDS: DESITIN 4OZ/NYSTATIN 15 GRAM MIXTURE PASTE TOP SCH ×2 (08:27→21:01)
[2017-01-16] MEDS: ASPIRIN CHEW 81 MG TABLET PO SCH (08:27)
[2017-01-16] MEDS: CARVEDILOL 25 MG TABLET PO SCH ×2 (08:27→08:55)
[2017-01-16] MEDS: CARVEDILOL 3.125 MG TABLET PO SCH ×2 (09:59→20:58)
[2017-01-16] MEDS: ENOXAPARIN 40 MG/0.4 ML SYRINGE SUBCUT SCH (15:00)
[2017-01-16] MEDS: FLUCONAZOLE INJ 200 MG in PREMIX 1 EACH IV SCH (16:40)
[2017-01-16] MEDS: hydrALAZINE 25 MG TABLET PO SCH (21:01)
[2017-01-17] MEDS: ALBUTEROL/IPRATROPIUM 3 ML NEB RESP TX SCH ×3 (00:17→13:40)
[2017-01-17] MEDS: INSULIN REGULAR 100 UNIT/ML SUBCUT SCH ×3 (00:31→12:30)
[2017-01-17 01:47] LABS: Basophils # 0.1 10*3/uL (0.0-0.2); Basophils % 0.8 % (0.0-0.8); Hematocrit 30.7 VOL% (42.0-52.0); Hemoglobin 9.3 GM/DL (14.0-18.0); Immature Granulocytes % 15.1 %; Immature Granulocytes Absolute 2.62 #; Lymphocytes # 1.5 10*3/uL (1.4-4.0); Lymphocytes % 8.8 % (21.2-54.2); Mean Corpuscular HGB Conc 30.3 GM/DL (32-36); Mean Corpuscular Hemoglobin 33 PG (27-34); Mean Corpuscular Volume 109.3 FL (87-102); Mean Platelet Volume 10.9 FL (9.6-12.0); Monocytes # 1.5 10*3/uL (0.11-0.8); Monocytes % 8.9 % (1.7-12.7); NRBC # 0.79 10*3/uL; Neutrophils # 11.5 10*3/uL (1.4-7.4); Neutrophils % 66.4 % (38.7-73.9); Platelet Count 180 T/CUMM (130-400); Red Blood Count 2.81 MC/CUMM (3.8-5.5); Red Cell Distribution Width 16.8 % (9.3-17.3); White Blood Count 17.3 T/CUMM (4-12)
[2017-01-17 02:05] LABS: Calcium 8.6 MG/DL (8.5-10.1); Magnesium 2.5 MG/DL (1.8-2.4); Osmolality,Calculated 296.8 MOS/KG (273-304); Potassium 3.9 MMOL/L (3.5-5.1)
[2017-01-17 02:51] LABS: ABG Base Excess 1.4 MMOL/L (-2.5-2.5); ABG HCO3 25.5 MMOL/L (20-26); ABG Oxygen Saturation 89.9 % (95-100); ABG PCO2 48.8 MM HG (35-48); ABG PH 7.356 (7.35-7.45); ABG PO2 54.9 MM HG (80-95); ABG TCO2 25.4 MMOL/L (23-27); Pt O2 Delivery Device BIPAP
[2017-01-17] MEDS: PIPERACILLIN/TAZOBACTAM 3,375 MG in SODIUM CHLORIDE 0.9% 100 ML IV SCH ×2 (03:34→12:32)
[2017-01-17 05:00] LABS: Band Neutrophils 6 % (0-10); Eosinophils 1 % (0-10); Lymphocytes 17 % (20-55); Metamyelocytes 5 %; Nucleated Red Blood Cells 6 (0-5); Promyelocytes 1 %; Segmented Neutrophils 66 % (50-85); Total Cells Counted 100
[2017-01-17 05:01] LABS: Anisocytosis 1+; Macrocytosis 1+; Platelet Estimate Normal; Polychromasia Few
[2017-01-17] MEDS ORDERED: SILDENAFIL 20 MG TABLET PO SCH (09:00)
[2017-01-17] MEDS: hydrALAZINE 25 MG TABLET PO SCH (09:03)
[2017-01-17] MEDS: CARVEDILOL 3.125 MG TABLET PO SCH (09:08)
[2017-01-17] MEDS: ASPIRIN CHEW 81 MG TABLET PO SCH (09:08)
[2017-01-17] MEDS: DESITIN 4OZ/NYSTATIN 15 GRAM MIXTURE PASTE TOP SCH (09:09)
[2017-01-17] MEDS: POTASSIUM CHLORIDE INJ 40 MEQ in DEXTROSE 5% 1,000 ML IV SCH (09:16)
[2017-01-17] MEDS: MULTIVITAMIN LIQUID (CENTRUM) 60 ML BOTTLE PER TUBE SCH (10:49)
[2017-01-17 15:50] VITALS: BP 125/76
[2017-01-17] MEDS ORDERED: FUROSEMIDE 40 MG TABLET PO SCH (16:00)
== END 2017-01-17 15:35 | DRG 166 ==
LOC: EDBD → EDUNIT# → N.ED 11:35 → N.EDINP 12:10 → SUATTDRO 12:10 → N.CC 14:00
PROVIDERS: ADMIT Internal Medicine; ATTEND Internal Medicine